=== PATIENT | female | born 1945 | race Hispanic/Latino ===

== ENCOUNTER 2024-06-08 07:30 | Day surgery (SDC) | payer MEDICARE ==
[2024-06-06 08:50] LABS: BASOPHILS # (AUTO) 0.07 K/uL (0.00-0.20); BASOPHILS % (AUTO) 0.9 % (0.0-5.0); EOSINOPHILS # (AUTO) 0.38 K/uL (0.00-0.70); EOSINOPHILS % (AUTO) 4.7 % (0.0-8.0); HEMATOCRIT 35.2 % (36-48); IMMATURE GRANULOCYTE ABSOLUTE 0.02 K/uL (0-1); LYMPHOCYTES # (AUTO) 2.8 K/uL (1.0-4.8); LYMPHOCYTES % (AUTO) 34.6 % (21.0-51.0); MEAN CORPUSCULAR HEMOGLOBIN 30.3 pg (27.0-33.0); MEAN CORPUSCULAR HGB CONC 31.5 g/dL (32.0-36.0); MEAN CORPUSCULAR VOLUME 96.2 fL (79-99); MONOCYTES # (AUTO) 0.5 K/uL (0.1-1.0); MONOCYTES % (AUTO) 6.2 % (3.0-13.0); NEUTROPHILS # (AUTO) 4.3 K/uL (1.8-7.7); NEUTROPHILS % (AUTO) 53.4 % (40.0-77.0); PLATELET COUNT (AUTO) 268 K/uL (130-400); RED BLOOD CELL COUNT(AUTO) 3.66 MIL/uL (4.00-5.50); WHITE BLOOD COUNT (AUTO) 8.1 K/uL (4.8-10.8)
[2024-06-06 08:58] LABS: CREATININE 1.3 mg/dL (0.5-1.0); POTASSIUM 4.2 mmol/L (3.5-5.1)
[2024-06-06 09:02] LABS: INR 1.08 (0.85-1.15); PROTHROMBIN TIME 11.6 SEC (9.6-11.6)
[2024-06-06 09:03] LABS: PARTIAL THROMBOPLASTIN TIME 27.3 SEC (26.3-35.5)
[2024-06-06 09:04] VITALS: BP 126/82; PULSE 62; RESP 16; TEMP 97.9
[2024-06-06 09:31] LABS: APPEARANCE,URINE CLEAR (CLEAR); BILIRUBIN,URINE NEGATIVE (NEGATIVE); COLOR,URINE LIGHT-YELLOW (YELLOW); GLUCOSE, URINE (UA) NEGATIVE (NEGATIVE); KETONES,URINE NEGATIVE (NEGATIVE); LEUKOCYTE ESTERASE ,URINE 250 Leu/uL (NEGATIVE); NITRATE,URINE NEGATIVE (NEGATIVE); OCCULT BLOOD,URINE NEGATIVE (NEGATIVE); PROTEIN,URINE NEGATIVE (NEGATIVE); UROBILINOGEN,URINE 0.2 mg/dL (0.2-1.0)
[2024-06-06 09:36] LABS: ADD UA MICROSCOPIC YES
[2024-06-06 09:38] LABS: RBC,URINE 0-1 /HPF (0-1); SQUAMOUS EPITHELIAL CELL,UR RARE /HPF (0-2)
[2024-06-06 09:51] LABS: B-TYPE NATRIURETIC PEPTIDE 88 pg/mL (0-100)
--- NOTE | 2024-06-06 10:32 | HMCIMG ---
CHEST 1VW HISTORY: Preop COMPARISON: None FINDINGS: A frontal projection of the chest was obtained. No acute pulmonary infiltrates is seen. The heart is normal in size. Degenerative changes are seen. Prominent interstitial markings are seen. Aortic calcifications are seen. IMPRESSION: 1. No acute pulmonary infiltrate is seen.
--- NOTE | 2024-06-06 10:33 | EKG ---
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
--- NOTE | 2024-06-07 15:41 | NUR ---
report reported bun/creat/urine cx preliminary/ urine leuk/uwbc to dr raven campos. ok to proceed
[2024-06-08] VITALS (11 sets, daily range): BP systolic 127–204; BP diastolic 52–81; PULSE 56–68; RESP 16–18; TEMP 97.7–97.9
[~2024-06-08] VITALS: Ht 139.7 cm; Wt 61.9 kg
[~2024-06-08 07:30] MED LIST: AEC81 PO; ATOR40TA69 PO; HYDR12.54 PO; INSU3INS3 SQ; LINA5TAB PO; LOSA100T59 PO; METF-444 PO; METO100T14 PO
[2024-06-08] MEDS: 0.9%NACL 1000ML 1,000 ML IV ONE (09:27)
--- NOTE | 2024-06-08 12:49 | NUR ---
SPOKE WITH PT ABOUT DR. GRANT DOING CASE AROUND 1530 PT WAS OK WITH WAITING. I DID GIVE PT 2 CRACKERS AND A LITTLE ORANGE JUICE.
[2024-06-08] MEDS ORDERED: FENTanyl CITRate PF 50 MCG/1 ML 2ML VIAL ONE (16:48)
[2024-06-08] MEDS ORDERED: MIDAZOLAM HCL 1 MG/ML 2ML VIAL ONE ×2 (16:48→17:12)
[2024-06-08] MEDS ORDERED: LIDOCAINE HCL 400MG/20ML VIAL ONE (16:48)
[2024-06-08] MEDS ORDERED: VERAPAMIL HCL 2.5 MG/ML VIAL ONE (16:49)
[2024-06-08] MEDS ORDERED: IOHEXOL 350 MG/ML 100ML INFUS..BTL IV ONE (16:49)
[2024-06-08] MEDS ORDERED: HEParin 10,000 UNIT/10ML (1,000 UNIT/ML) VIAL ONE (16:49)
[2024-06-08] MEDS ORDERED: NITROGLYCERIN 50MG VIAL ONE (16:49)
[2024-06-08] MEDS ORDERED: HEParin-NS 1,000 UNIT/500 ML 1,000 ML IV ONE (16:49)
[2024-06-08] MEDS ORDERED: hydrALAZine 20MG/ML VIAL ONE (17:46)
[2024-06-08] MEDS ORDERED: NITROGLYCERIN 4.1 GM SPRAY TL ONE (17:51)
--- NOTE | 2024-06-08 17:52 | PRN ---
PROCEDURE REPORT DATE OF PROCEDURE: Jun 08, 2024 DRUG SAFETY ASSISTANT: [ Zane Fang MD] PROCEDURE PERFORMED: Conscious sedation Ultrasound guided right radial artery access Selective left coronary artery angiogram Selective right coronary artery angiogram Left heart catheterization TR band 13 pratibha over right radial artery INDICATION: Abnormal CCTA DESCRIPTION OF PROCEDURE: After informed consent was obtained, the patient was prepped and draped in the usual sterile fashion. A 6 Ecuadorean arterial sheath was inserted in the right radial artery using ultrasound guidance with first pass wall puncture. The arterial sheath was aspirated and flushed. A 6 Ecuadorean JL 3.5 was then advanced to the ascending aorta over an exchange length J-tip guidewire, was aspirated and flushed, and was used for selective coronary angiograms in multiple obliquities. A JR-4 was advanced in a similar fashion to the ascending aorta over the J-tipped guidewire and was used for selective right coronary angiograms in multiple oblique views with findings as outlined below. The JR-4 catheter advanced into the LV and pressures were obtained with a pull-back across the aortic valve. A TR band was placed over right radial artery. FLUOROSCOPY TIME: 5 min LEFT HEART HEMODYNAMICS: LVEDP 5 mm Hg and no gradient Ao CORONARY ANGIOGRAM: LEFT MAIN: Patent and 0% stenosis. Gives rise to LCx and LAD. LEFT ANTERIOR DESCENDING: Large vessel giving rise to two Diagonal branches. Calcified with 80% proximal stenosis with LOBO 3 flow. The diagonals are patent with luminal irregularities LEFT CIRCUMFLEX: Large and gives rise to two OM branches. 50% ostial stenosis followed by 30% proximal stenosis. The OM are patent with mild diffuse disease RIGHT CORONARY ARTERY: Large, dominant vessel giving rise to PDA and PL branches. Heavily calcified with 50% proximal becoming 80% in the mid segment. PDA and PLB are widely patent HEMOSTASIS: TR band 12 pratibha over right radial artery INTERVENTIONS: None. COMPLICATIONS: None FINDINGS: Normal coronary anatomy and severe 2vCAD. ESTIMATED BLOOD LOSS: 5 cc RECOMMENDATIONS/INSTRUCTIONS: Aggressive risk factor modification and consult CV surgery for CABG eval vs high risk PCI Follow up in clinic 1-2 weeks post DC. CONTRAST DELIVERED TO PATIENT (mL): 45cc MD RUDY Estrella JAMES R MD Jun 08, 2024 17:52
[2024-06-08] MEDS ORDERED: GLUCAGON 1MG KIT 1 MG ML IM PRN (18:00)
[2024-06-08] MEDS ORDERED: 0.9%NACL 1000ML 1,000 ML IV SCH (18:00)
[2024-06-08] MEDS ORDERED: DEXTROSE 50%-WATER 50 ML DISP.SYRIN IV PRN (18:00)
== END 2024-06-08 20:38 | disposition home or self-care (01) ==
LOC: DAH 07:30
PROVIDERS: ATTEND Student in an Organized Health Care Education/Training Program
DX: R93.1 Abnormal findings on diagnostic imaging of heart and coronary circulation (principal); I25.118 Atherosclerotic heart disease of native coronary artery with other forms of angina pectoris; R07.9 Chest pain, unspecified; I11.9 Hypertensive heart disease without heart failure; E78.5 Hyperlipidemia, unspecified; K21.9 Gastro-esophageal reflux disease without esophagitis; Z79.4 Long term (current) use of insulin; Z79.82 Long term (current) use of aspirin; Z79.899 Other long term (current) drug therapy
CPT/HCPCS: 80048; 83880; 85025; 85610; 85730; 87086; 81001; 36415; 71045; 93005; 93458; 82948 ×2; C1769 ×2; C1894; A4649; J3010; J3490 ×3; J7030; J0360; J1644 ×2; J2250 ×2; Q9967; A4215; A4222; A4221; A4663; A4216; A4606; Q9965; A4223 ×3; 99156; 99157

== ENCOUNTER 2024-12-16 10:44 | Inpatient (IN) | payer MEDICARE, MEDICAID ==
[~2024-12-16] VITALS: Ht 144.8 cm; Wt 65.0 kg
[~2024-12-16 10:44] MED LIST changes: +ACET-2893 PO; +APIX2.5T PO; +ATROPINE 1MG SYG IVP ONE; +CACL 1GM SYG IVP ONE; +DICY-20 PO; -HYDR12.54 PO; -INSU3INS3 SQ; -LOSA100T59 PO; -METF-444 PO; -METO100T14 PO; +METO50TA9 PO; +PANT40TA55 PO; +POTA-202 PO
[2024-12-16 11:35] LABS: BASOPHILS # (AUTO) 0.03 K/uL (0.00-0.20); BASOPHILS % (AUTO) 0.2 % (0.0-5.0); HEMATOCRIT 39.9 % (36-48); IMMATURE GRANULOCYTE ABSOLUTE 0.25 K/uL (0-1); LYMPHOCYTES # (AUTO) 1.6 K/uL (1.0-4.8); LYMPHOCYTES % (AUTO) 12.1 % (21.0-51.0); MEAN CORPUSCULAR HEMOGLOBIN 28.1 pg (27.0-33.0); MEAN CORPUSCULAR HGB CONC 27.6 g/dL (32.0-36.0); MEAN CORPUSCULAR VOLUME 101.8 fL (79-99); MONOCYTES # (AUTO) 0.9 K/uL (0.1-1.0); MONOCYTES % (AUTO) 7.2 % (3.0-13.0); NEUTROPHILS # (AUTO) 10.2 K/uL (1.8-7.7); NEUTROPHILS % (AUTO) 78.6 % (40.0-77.0); NUCLEATED RED BLOOD CELLS 0.9 % (0.0-0.19); PLATELET COUNT (AUTO) 240 K/uL (130-400); RED BLOOD CELL COUNT(AUTO) 3.92 MIL/uL (4.00-5.50); RED CELL DISTRIBUTION WIDTH 19.3 % (11.0-15.5); WHITE BLOOD COUNT (AUTO) 12.9 K/uL (4.8-10.8)
--- NOTE | 2024-12-16 11:40 | NUR ---
BG 101
[2024-12-16 11:55] LABS: ALBUMIN 2.9 g/dL (3.5-5.0); BILIRUBIN,DIRECT 0.9 mg/dL (0.0-0.3); BILIRUBIN,TOTAL 1.3 mg/dL (0.2-1.0); CREATININE 2.6 mg/dL (0.5-1.0); POTASSIUM 4.7 mmol/L (3.5-5.1); TOTAL PROTEIN, SERUM 6.2 g/dL (6.0-8.3)
[2024-12-16] MEDS: 0.9%NACL 1000ML 1,000 ML IV ONE (13:00)
--- NOTE | 2024-12-16 13:18 | EKG ---
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 : 1945 Requested By: IVY ANDRADE Order Number: [id number] Reading MD: Hamilton Morrell Measurements Intervals [place] Rate: 113 P: 0 [place]: 0 QRS: 15 QRSD: 106 T: 4 QT: 387 QTc: 532 Interpretive Statements Atrial fibrillation Ventricular premature complex Low voltage, extremity leads Prolonged QT interval Compared to ECG 11/07/2024 14:41:58 Ventricular premature complex(es) now present Left ventricular hypertrophy no longer present Early repolarization no longer present Electronically Signed On 12-19-2024 22:12:48 CDT by Hamilton Morrell Please click the below link to view image of tracing.
--- NOTE | 2024-12-16 13:19 | HMCIMG ---
CT ABDOMEN/PELVIS W/O CONTRAST HISTORY: Abnormal pain COMPARISON: None TECHNIQUE: Multiple sequential axial images of the abdomen and pelvis were obtained from the dome of the diaphragm through symphysis pubis. Patient was November 07, 2024 through intravenous route. Oral contrast was not given. FINDINGS: Small bilateral pleural effusions are seen. Bilateral pulmonary infiltrates are seen. Degenerative changes of the thoracolumbar spine are present. The heart is not enlarged. Liver measured 12.4 cm. Gastric distention seen with air-fluid level. Postcholecystectomy changes are seen. Mild small bowel dilatation seen with fluid-filled may be related to enterocolitis. Uterus is enlarged suggests a fibroid uterus. There is right renal cyst measuring 4 cm. The liver, spleen, adrenal glands and pancreas are unremarkable. There is no evidence of hydronephrosis bilaterally. No evidence of renal stone is seen. Fecal material is seen in the colon. There are normal size retroperitoneal and mesenteric lymph nodes. No ascites is seen. Atherosclerotic changes are present. Pelvic sidewalls are symmetric bilaterally. Bladder is poorly distended. IMPRESSION: 1. Gastric distention. No small bowel dilatation. There may be related to enterocolitis. 2. Enlarged uterus suggesting fibroid uterus. CT was performed with one or more following dose reduction techniques: automated exposure control, adjustment of the mA and kv according to patient's size, or use of a iterative reconstruction technique.
[2024-12-16] MEDS ORDERED: MAGNESIUM 2GM PREMIX 50ML 50 ML IV PRN (14:30)
[2024-12-16] MEDS ORDERED: GLUCAGON 1MG KIT 1 MG ML IM PRN (14:30)
[2024-12-16] MEDS: morPHINE 2 MG SYG IVP ONE (14:32)
[2024-12-16] MEDS ORDERED: traMADol HCL 50 MG TABLET PO PRN (15:00)
[2024-12-16] MEDS ORDERED: ondanSETRON 4MG INJ IV PRN (15:00)
[2024-12-16] MEDS ORDERED: NITROGLYCERIN 0.4 MG SL TAB SL PRN (15:00)
[2024-12-16] MEDS ORDERED: acetaMINOPHEN 325 MG TAB PO PRN ×3 (15:00)
[2024-12-16] MEDS ORDERED: ZOLPidem TARTrate 5 MG TAB PO PRN (15:00)
[2024-12-16] MEDS ORDERED: cefTRIAXone 1G VIAL 2 GM in 0.9%NACL 100ML 100 ML IV SCH (15:00)
[2024-12-16] MEDS ORDERED: LACTULOSE 20 GM/30 ML UDCUP PO PRN (15:00)
[2024-12-16] MEDS ORDERED: FAMOTIDINE 20MG VIAL IV PRN (15:00)
[2024-12-16] MEDS ORDERED: MAG/ALUM/SIMETH 30 ML UDCUP PO PRN (15:00)
[2024-12-16] MEDS ORDERED: guaiFENesin-DM 200/20MG 10ML PO PRN (15:00)
[2024-12-16] MEDS ORDERED: hydrALAZine 20MG/ML VIAL IV PRN (15:00)
[2024-12-16] MEDS ORDERED: DiphenhydrAMINE HCL 50 MG/ML VIAL IV PRN (15:00)
--- NOTE | 2024-12-16 15:06 | HP ---
[facility] HISTORY AND PHYSICAL Date of Service: December 16, 2024 Time of Service: 14:48 PCP:Dr Eleuterio Vines Admitting: Dr Helms, Allergies: No Allergy Information Available, No Known Drug Allergies HISTORY OF PRESENT ILLNESS: [Patient is 79 years old female with a past medical history of type 2 diabetes mellitus, hypertension, hyperlipidemia, Coronary Artery Disease with history of CABG, osteoarthritis, GERD, who was brought to emergency department for evaluation of epigastric pain. Patient stated that in October 2024 she had laparoscopic cholecystectomy performed at [facility]. Patient stated that surgery went well however she continued to have some epigastric pain associated with the nausea and vomiting. She visited emergency department [facility] multiple times since the surgery the last one was 11/07/2024. Today patient came with the same complaint of severe abdominal pain, nausea and vomiting since yesterday evening. As per EMS patient was hypoglycemic and had to receive glucagon. On admission patient's kidneys also has been evaluated compared to the previous admission. Most recent vital signs pulse 98 respiration 18 blood pressure 164/88 patient is on 2 L nasal cannula satting 100%. WBC 12.9 hemoglobin 11 hematocrit 39.9 platelets 240. Sodium 147 potassium 4.7 CO2 seven BUN 35 creatinine 2.6 GFR 18 bilirubin 1.3 AST 2.3 ALT 57 troponin 54 repeated 164 albumin 2.[address] abdomen/pelvis showed gastric distention no bowel dilation. Possible enterocolitis. Enlarged uterus suggesting fibroids uterus. Chest x-ray pending. Patient will be admitted under hospitalist care for further evaluation/recommendation. A.m. labs.] REVIEW OF SYSTEMS CONSTITUTIONAL: Denies fevers, chills, or night sweats. No unintentional weight loss reported. NEUROLOGICAL: Denies headache, amaurosis fugax, motor weakness, sensory deficit, vertigo/spinning sensation, gait abnormalities, or tremors. ENT: No hearing loss, otalgia, otorrhea, rhinitis, rhinorrhea, hoarseness, or sore throat. CARDIOVASCULAR: Denies any exertional angina, dyspnea on exertion, orthopnea, paroxysmal nocturnal dyspnea, palpitations, life-threatening arrhythmias, cla udication. PULMONARY: Denies any shortness of breath, cough, phlegm/sputum, hemoptysis, pleuritic chest pain. SLEEP: Denies morning headaches, daytime somnolence or napping. Denies difficulty falling asleep, staying asleep, waking from sleep. Denies knowledge of snoring. GASTROINTESTINAL: Denies any type of dysphagia to either liquids or solids. Denies , pyrosis, early satiety, , diarrhea, constipation, or changes in stool consistency or caliber. Denies coffee-ground emesis, hematemesis, hematochezia, or melanotic stools. Complains of abdominal pain nausea and vomiting GENITOURINARY: Denies frequency, urgency, nocturia, hematuria or incontinence (Storage/Irritative symptoms.) Low urinary stream, straining to void, urinary intermittency or hesitancy, splitting of the voiding stream, terminal dribbling. ENDOCRINOLOGIC: Denies polyuria, polydipsia, polyphagia or heat/cold intolerances. HEMATOLOGIC: Denies thrombophilia/previous clots, or coagulopathy/bleeding disorders. ONCOLOGIC: Denies personal history of malignancy. DERMATOLOGIC: Denies rashes or pruritus. PSYCHIATRIC: Denies any suicidal or homicidal ideation. Denies hallucinations. PAST MEDICAL HISTORY: [ AFib, diabetes, hypertension, hyperlipidemia, Coronary Artery Disease, osteoarthritis, GERD ] PAST SURGICAL HISTORY: [ CABG, cholecystectomy] PAST SOCIAL HISTORY: [Patient denies any tobacco or alcohol nor substance abuse ] FAMILY HISTORY: [ Noncontributory] Coded Allergies: No Known Drug Allergies (Unverified Allergy, Unknown, 06/06/24) PHYSICAL EXAM GENERAL APPEARANCE: The patient is awake, alert, and oriented, in no acute cardiopulmonary distress. NEUROLOGICAL: Cranial nerves II-XII grossly intact. Motor is 5/5 in bilateral upper and lower extremities proximal to distal. No sensory deficits. HEENT: Face is symmetric. Pupils are equal and reactive. Extraocular movements are intact. NECK: Supple. No JVD. No thyromegaly. No submental, submandibular, pre- /postauricular, occipital or supraclavicular lymphadenopathy. CHEST: Normal chest expansion. No Telemetry. LUNGS: Absence of any rales, rhonchi or any wheezing. CARDIOVASCULAR: Regular. S1 and S2 normal. No appreciable rubs, murmurs or gallops. ABDOMEN: Soft, nontender, and nondistended. There is no rebound, voluntary guarding, or rigidity. : Deferred. No Isbell. EXTREMITIES: Non-edematous and not cyanotic. No clubbing. Good capillary ref ill. SKIN: No skin breakdown. Vital Sign (Last 24 Hours) 12/16/24 10:47 Pulse 98 Resp 18 B/P (MAP) 164/88 Pulse Ox 100 O2 Delivery Nasal Cannula O2 Flow Rate 2.0 LABS: Laboratory: Test 12/16/24 12:31 12/16/24 11:38 12/16/24 11:16 Range/Units Troponin I High Sensitivity 64 *H 4-50 ng/L Whole Blood Glucose 101 70-110 MG/DL White Blood Count 12.9 H 4.8-10.8 K/uL Red Blood Count 3.92 L 4.00-5.50 MIL/uL Hemoglobin 11.0 L 12.0-16.0 g/dL Hematocrit 39.9 36-48 % Mean Corpuscular Volume 101.8 H 79-99 fL Mean Corpuscular Hemoglobin 28.1 27.0-33.0 pg Mean Corpuscular Hemoglobin Concent 27.6 L 32.0-36.0 g/dL Red Cell Distribution Width 19.3 H 11.0-15.5 % Platelet Count 240 130-400 K/uL Mean Platelet Volume 11.4 H 7.5-10.5 fL Immature Granulocyte % (Auto) 1.9 H 0-1 % Neutrophils (%) (Auto) 78.6 H 40.0-77.0 % Lymphocytes (%) (Auto) 12.1 L 21.0-51.0 % Monocytes (%) (Auto) 7.2 3.0-13.0 % Eosinophils (%) (Auto) 0.0 0.0-8.0 % Basophils (%) (Auto) 0.2 0.0-5.0 % Neutrophils # (Auto) 10.2 H 1.8-7.7 K/uL Lymphocytes # (Auto) 1.6 1.0-4.8 K/uL Monocytes # (Auto) 0.9 0.1-1.0 K/uL Eosinophils # (Auto) 0.00 0.00-0.70 K/uL Basophils # (Auto) 0.03 0.00-0.20 K/uL Absolute Immature Granulocyte (auto 0.25 0-1 K/uL Nucleated Red Blood Cells 0.9 H 0.0-0.19 % Red Blood Cell Morphology See comments Sodium Level 147 H 136-145 mmol/L Potassium Level 4.7 3.5-5.1 mmol/L Chloride Level 106 101-111 mmol/L Carbon Dioxide Level 7 *L 21-32 mmol/L Blood Urea Nitrogen 35 H 7-18 mg/dL Creatinine 2.6 H 0.5-1.0 mg/dL Glomerular Filtration Rate Calc 18 >90 mL/min Random Glucose 107 H 70-105 mg/dL Total Calcium 9.6 8.5-10.1 mg/dL Total Bilirubin 1.3 H 0.2-1.0 mg/dL Direct Bilirubin 0.9 H 0.0-0.3 mg/dL Aspartate Amino Transf (AST/SGOT) 203 H 10-37 U/L Alanine Aminotransferase (ALT/SGPT) 57 12-78 U/L Alkaline Phosphatase 220 H 50-136 U/L Total Protein 6.2 6.0-8.3 g/dL Albumin 2.9 L 3.5-5.0 g/dL Lipase 34 16-77 U/L Current Medications Medications (Trade) Dose Ordered Sig/Jesus Route PRN Reason Start Time Stop Time Status Last Admin Dose Admin Dextrose (D50w) 50 ml AD PRN IV HYPOGLYCEMIA PROTOCOL 12/16/24 14:30 01/15/25 14:29 Glucagon (Glucagon 1mg Kit) 1 mg AD PRN IM HYPOGLYCEMIA PROTOCOL 12/16/24 14:30 01/15/25 14:29 Insulin Human Regular (humuLIN R 100 UNIT/ML 3ML) INSULIN SLIDING SCAL... ACHS SQ 12/16/24 16:30 01/15/25 16:29 Magnesium Sulfate 50 ml @ 0 mls/hr PROTOCOL PRN IV other 12/16/24 14:30 01/15/25 14:29 DIAGNOSTICS / RADIOLOGY: [ ] ASSESSMENT: [ Acute kidney injury POA Severe hypoglycemia POA Enterocolitis per CT abdomen/pelvis POA Fibroid uterus per CT abdomen/pelvis POA Severe abdominal pain POA Acute dehydration due to above POA Uncontrolled diabetes mellitus type 2 with hypoglycemia POA Uncontrolled hypertension POA Leukocytosis WBC 12.9 Electrolyte imbalance hyponatremia Na 147 AFib controlled POA Hypertroponinemia POA Severe malnutrition POA Multifactorial anemia POA Acute diastolic congestive heart failure EF 50 to 55% per 2D echo 11/07/2024 Hyperlipidemia POA Coronary Artery Disease s/p CABG 07/12 GERD POA Osteoarthritis POA History of cholecystectomy October 2024 ] PLAN: [ Admit to: Medical-surgical floor with telemetry Consults: GI Antibiotics: Rocephin Tests: Chest x-ray NEURO: Minimize central acting medications as possible. Fall Precautions. Well lighted room through the day and minimize interruptions through the night to prevent acute delirium. PULMONARY: Chest x-ray pending Supplemental 02 as needed BiPAP as necessary, for respiratory distress Titrate Fio2 to keep Spo2 > or = 90% DuoNebs and CPT as needed IS hourly while awake for pulmonary hygiene Out of bed to chair as tolerated VAP Bundle Maintain aspiration precautions at all times CARDIOVASCULAR: Follow hemodynamics. Vital signs per facility protocol GI & NUTRITION: CT abdomen/pelvis showed enterocolitis, fibroid uterus Continue nutritional support Aspirations precautions Prokinetic agents and laxatives as needed KIDNEYS & ELECTROLYTES: Strict monitoring of intake and output Daily weights Avoid nephrotoxic agents Monitor electrolytes and replace as needed Goal urine output of 30mL/hr or 0.5mL/kg/hr Medications to be dosed according to renal function. Avoid contrast if possible ENDOCRINE: Maintain blood glucose between 100-180 at all times. Insulin sliding scale for blood glucose management Hypoglycemia and hyperglycemia protocol in place INFECTIOUS DISEASE: Trend temperature, WBC and procalcitonin level Follow cultures, deescalate antibiotics as soon as possible. Panculture if new onset fever HEMATOLOGY & COAGULATION: Monitor H&H. Keep Hgb > 7 Transfuse 1 unit of PRBC for Hgb < 7 Transfuse 1 pack of platelets of platelets < 20, 000 Watch for any signs and symptoms of bleeding SKIN: Pressure ulcer prevention per facility protocol Specialty mattress as needed Treatment plan discussed with patient and family at the bedside Medications to be reconciled once obtained by patient and/or family and available to be reconciled in computer p.r.n. medication for pain nausea and vomiting Questions were answered We will continue to monitor the patient closely Commercial Truck Driver for disposition Rehab: PT/OT GI: PPI DVT: SCD's Code Status: Full Resuscitation Disposition: TBD Prognosis: Guarded ] ADVANCED CARE PLANNING 1. Which of the following were discussed? Hospice Care - Yes / No Therapeutic options - Yes / No Advance Directives - Yes / No Other discussions - 2. Discussed with who? Patient 3. Voluntary nature of this service was explained to the patient? Yes / No 4. Amount of time spent - __ more than 35 minutes 5. Reviewed by Physician? (if this service was performed by NPP) Yes / No ATTESTATION BY PHYSICIAN I have seen and examined the patient. I reviewed the documentation, medical decision making, and treatment plan as noted by the mid-level provider above. I agree with the findings and plan of care. SASHA Cornell MD PISTON MAKER December 16, 2024 15:06
[2024-12-16 15:45] LABS: BILIRUBIN,URINE SMALL mg/dL (NEGATIVE); COLOR,URINE YELLOW (YELLOW); GLUCOSE, URINE (UA) NEGATIVE (NEGATIVE); KETONES,URINE NEGATIVE (NEGATIVE); LEUKOCYTE ESTERASE ,URINE NEGATIVE Leu/uL (NEGATIVE); NITRATE,URINE NEGATIVE (NEGATIVE); OCCULT BLOOD,URINE LARGE (NEGATIVE); PROTEIN,URINE >=300 mg/dL (NEGATIVE); UROBILINOGEN,URINE 0.2 mg/dL (0.2-1.0)
[2024-12-16 15:48] LABS: APPEARANCE,URINE CLOUDY (CLEAR)
[2024-12-16 15:52] LABS: BACTERIA,URINE Few /HPF (None Seen); SQUAMOUS EPITHELIAL CELL,UR None Seen /HPF (0-2); WBC,URINE 0-1 /HPF (0-1)
--- NOTE | 2024-12-16 16:00 | CONS ---
GASTROENTEROLOGY CONSULTATION NOTE Date of Consultation: December 16, 2024 Time of Consultation: 16:00 History of Present Illness: This is an 79 year old female with a past medical history of type 2 diabetes mellitus, hypertension, hyperlipidemia, Coronary Artery Disease with history of CABG, osteoarthritis, GERD, who was brought to emergency department for evaluation of epigastric pain. Patient stated that in October 2024 she had laparoscopic cholecystectomy performed at [facility]. Patient stated that surgery went well however she continued to have some epigastric pain associated with the nausea and vomiting. She visited emergency department [facility] multiple times since the surgery the last one was 11/07/2024. Today patient came with the same complaint of severe abdominal pain, nausea and vomiting since yesterday evening. As per EMS patient was hypoglycemic and had to receive glucagon. Sodium and troponin elevated. LFTs elevated. CT revealing gastric distention concerning for enterocolitis. Review of Systems: CONSTITUTIONAL: No malaise or change in sensation of wellbeing. ENMT: No rhinorrhea, otorrhea, sinus pain, ear ache. CARDIOVASCULAR: No angina, palpitations, orthopnea or paroxysmal dyspnea. RESPIRATORY: No SOB. GASTROINTESTINAL: No abdominal pain, nausea, vomiting, diarrhea, hematemesis, melena or change in the patient's habitual bowel movements consistency/number. GENITOURINARY: No dysuria, hematuria or change in bladder continence. MUSCULOSKELETAL: No new muscle pain or decrease in muscular strength. No new joint swelling, redness or tenderness. SKIN: No new rash. Past Medical History: [ ] Past Surgical History: [ ] Past Social History: [ ] Family History: [ ] Coded Allergies: No Known Drug Allergies (Unverified Allergy, Unknown, 06/06/24) Physical Exam: GEN: Awake, alert, oriented in person, time and place, and in no acute distress. HEENT: No sinus tenderness. Tympanic membranes were not examined. No rhinorrhea. Oral pharyngeal mucosa is pink, moist and within normal limits. Neck is supple with no cervical lymphadenopathy, thyromegaly or JVD. CHEST: Inspection, palpation and percussion of the chest were unremarkable. Lung auscultation revealed normal breath sounds bilaterally. CARDIAC: PMI is within normal limits. Heart sounds are regular. Normal S1, S2. No gallop or murmur. ABD: Soft, non-tender and not distended. No peritoneal signs on palpation. No organomegaly. Normal bowel sounds. EXT: No cyanosis or clubbing. No edema. SKIN: Intact. No rashes. JOINTS: No evidence of synovitis or acute arthritis. NEURO: Alert and oriented to name, place and person. Cranial nerve examination is unremarkable. No focal motor deficits. Normal speech. Gait is normal. Strength is normal. Vital Sign (Last 24 Hours) 12/16/24 10:47 Pulse 98 Resp 18 B/P (MAP) 164/88 Pulse Ox 100 O2 Delivery Nasal Cannula O2 Flow Rate 2.0 Laboratory: [ ] Laboratory: Test 12/16/24 15:23 12/16/24 12:31 12/16/24 11:38 12/16/24 11:16 Range/Units Urine Color YELLOW YELLOW Urine Appearance CLOUDY H CLEAR Urine pH 6.0 5.0-8.0 Urine Specific [place] 1.020 1.001-1.031 Urine Protein >=300 H NEGATIVE mg/dL Urine Glucose (UA) NEGATIVE NEGATIVE mg/dL Urine Ketones NEGATIVE NEGATIVE mg/dL Urine Occult Blood LARGE H NEGATIVE Urine Nitrate NEGATIVE NEGATIVE Urine Bilirubin SMALL H NEGATIVE mg/dL Urine Urobilinogen 0.2 0.2-1.0 mg/dL Urine Leukocyte Esterase NEGATIVE NEGATIVE Justin/uL Urine RBC 11-25 H 0-1 /HPF Urine WBC 0-1 0-1 /HPF Urine Squamous Epithelial Cells None Seen 0-2 /HPF Urine Amorphous Crystals (Auto) Many H None Seen /LPF Urine Bacteria Few None Seen /HPF Troponin I High Sensitivity 64 *H 4-50 ng/L Serum Alcohol < 3 0-10 mg/dL Whole Blood Glucose 101 70-110 MG/DL White Blood Count 12.9 H 4.8-10.8 K/uL Red Blood Count 3.92 L 4.00-5.50 MIL/uL Hemoglobin 11.0 L 12.0-16.0 g/dL Hematocrit 39.9 36-48 % Mean Corpuscular Volume 101.8 H 79-99 fL Mean Corpuscular Hemoglobin 28.1 27.0-33.0 pg Mean Corpuscular Hemoglobin Concent 27.6 L 32.0-36.0 g/dL Red Cell Distribution Width 19.3 H 11.0-15.5 % Platelet Count 240 130-400 K/uL Mean Platelet Volume 11.4 H 7.5-10.5 fL Immature Granulocyte % (Auto) 1.9 H 0-1 % Neutrophils (%) (Auto) 78.6 H 40.0-77.0 % Lymphocytes (%) (Auto) 12.1 L 21.0-51.0 % Monocytes (%) (Auto) 7.2 3.0-13.0 % Eosinophils (%) (Auto) 0.0 0.0-8.0 % Basophils (%) (Auto) 0.2 0.0-5.0 % Neutrophils # (Auto) 10.2 H 1.8-7.7 K/uL Lymphocytes # (Auto) 1.6 1.0-4.8 K/uL Monocytes # (Auto) 0.9 0.1-1.0 K/uL Eosinophils # (Auto) 0.00 0.00-0.70 K/uL Basophils # (Auto) 0.03 0.00-0.20 K/uL Absolute Immature Granulocyte (auto 0.25 0-1 K/uL Nucleated Red Blood Cells 0.9 H 0.0-0.19 % Red Blood Cell Morphology See comments Sodium Level 147 H 136-145 mmol/L Potassium Level 4.7 3.5-5.1 mmol/L Chloride Level 106 101-111 mmol/L Carbon Dioxide Level 7 *L 21-32 mmol/L Blood Urea Nitrogen 35 H 7-18 mg/dL Creatinine 2.6 H 0.5-1.0 mg/dL Glomerular Filtration Rate Calc 18 >90 mL/min Random Glucose 107 H 70-105 mg/dL Total Calcium 9.6 8.5-10.1 mg/dL Total Bilirubin 1.3 H 0.2-1.0 mg/dL Direct Bilirubin 0.9 H 0.0-0.3 mg/dL Aspartate Amino Transf (AST/SGOT) 203 H 10-37 U/L Alanine Aminotransferase (ALT/SGPT) 57 12-78 U/L Alkaline Phosphatase 220 H 50-136 U/L Total Protein 6.2 6.0-8.3 g/dL Albumin 2.9 L 3.5-5.0 g/dL Lipase 34 16-77 U/L Current Medications Medications (Trade) Dose Ordered Sig/Jesus Route PRN Reason Start Time Stop Time Status Last Admin Dose Admin Acetaminophen (TYLenol 325MG TAB) 650 mg Q4H PRN PO MILD PAIN (1-3) 12/16/24 15:00 01/15/25 14:59 Acetaminophen (TYLenol 325MG TAB) 650 mg Q6H PRN PO MILD PAIN (1-3) 12/16/24 15:00 12/16/24 14:49 DC Acetaminophen (TYLenol 325MG TAB) 650 mg Q6H PRN PO TEMPERATURE GREATER THAN 101.5 12/16/24 15:00 01/15/25 14:59 Al Hydroxide/Mg Hydroxide (MAALox PLUS 30ML) 30 ml Q6H PRN PO INDIGESTION 12/16/24 15:00 01/15/25 14:59 Ceftriaxone Sodium 2 gm/ Sodium Chloride 100 ml @ 200 mls/hr Q24H IV 12/16/24 15:00 12/16/24 14:49 DC Ceftriaxone Sodium (Rocephin 2gm Inj) 2 gm Q24H IVPB 12/16/24 15:00 12/26/24 14:59 Dextrose (D50w) 50 ml AD PRN IV HYPOGLYCEMIA PROTOCOL 12/16/24 14:30 01/15/25 14:29 Diphenhydramine HCl (BENAdryl INJ) 25 mg Q6H PRN IV SEVERE ITCHING/RASH 12/16/24 15:00 01/15/25 14:59 Famotidine (Pepcid 20mg Vial) 20 mg BID PRN IV NAUSEA/VOMITING 12/16/24 15:00 12/16/24 14:49 DC Famotidine (Pepcid 20mg Vial) 20 mg Q48H IV 12/16/24 21:00 01/15/25 20:59 Glucagon (Glucagon 1mg Kit) 1 mg AD PRN IM HYPOGLYCEMIA PROTOCOL 12/16/24 14:30 01/15/25 14:29 Guaifenesin/ Dextromethorphan (RobiTUSSin DM 200/20MG 10ML) 10 ml Q4H PRN PO COUGH 12/16/24 15:00 01/15/25 14:59 Heparin Sodium (Porcine) (HEParin 5,000 UNIT VIAL) 5,000 unit BID SQ 12/16/24 21:00 01/15/25 20:59 Hydralazine HCl (APRESOLine 20MG INJ) 10 mg Q6H PRN IV For:SBP above 160;DBP above 90 12/16/24 15:00 01/15/25 14:59 Insulin Human Regular (humuLIN R 100 UNIT/ML 3ML) INSULIN SLIDING SCAL... ACHS SQ 12/16/24 16:30 01/15/25 16:29 Lactulose (Constulose 20gm/ 30ml Udcup) 20 gm BID PRN PO CONSTIPATION 12/16/24 15:00 01/15/25 14:59 Magnesium Sulfate 50 ml @ 0 mls/hr PROTOCOL PRN IV other 12/16/24 14:30 01/15/25 14:29 Morphine Sulfate (morPHINE 2MG SYG) 1 mg Q4H PRN IVP SEVERE PAIN (7-10) 12/16/24 15:00 12/23/24 14:59 Nitroglycerin (Nitrostat) 0.4 mg PROTOCOL PRN SL CHEST PAIN 12/16/24 15:00 01/15/25 14:59 Ondansetron HCl (zoFRAN 4MG INJ) 4 mg Q6H PRN IV NAUSEA/VOMITING 12/16/24 15:00 01/15/25 14:59 Sodium Chloride 1,000 ml @ 100 mls/hr Q10H IV 12/16/24 15:00 01/15/25 14:59 Tramadol HCl (UltRAM) 50 mg Q6H PRN PO MODERATE PAIN (4-6) 12/16/24 15:00 12/21/24 14:59 Zolpidem Tartrate (AmbIEN) 5 mg HS PRN PO INSOMNIA 12/16/24 15:00 01/15/25 14:59 Diagnostics / Radiology: [COPY/PASTE HERE IF NO REPORTS PLEASE DELETE SECTION] Assessment: Abnormal imaging revealing gastric distention Abnormal LFTs Plan: EGD in am to eval gastric distention Obtain MRCP to r/o cbd stone Trend LFTs YRN CASTELLON DIRECTOR OF MATERIALS MANAGEMENT December 16, 2024 16:00
--- NOTE | 2024-12-16 16:10 | HMCIMG ---
CHEST 1VW HISTORY: Congestion COMPARISON: 11/08/1999 FINDINGS: A frontal projection of the chest was obtained. No acute pulmonary infiltrates is seen. Poststernotomy changes are seen. The heart is enlarged. Degenerative changes of the thoracolumbar spine are present. Degenerative changes are seen. Prominent markings are seen. No evidence of aortic calcification is seen. IMPRESSION: 1. No acute pulmonary infiltrate is seen.
[2024-12-16] MEDS: cefTRIAXone 2GM VIAL IVPB SCH (16:14)
[2024-12-16 16:20] LABS: AMPHET/METH SCREEN,URINE NEGATIVE (NEGATIVE); BARBITURATE SCREEN, URINE NEGATIVE (NEGATIVE); BENZODIAZEPINES SCREEN,URINE NEGATIVE (NEGATIVE); CANNABINOID SCREEN,URINE NEGATIVE (NEGATIVE); COCAINE SCREEN,URINE NEGATIVE (NEGATIVE); OPIATE SCREEN,URINE NEGATIVE (NEGATIVE); PHENCYCLIDINE SCREEN,URINE NEGATIVE (NEGATIVE)
--- NOTE | 2024-12-16 16:40 | NUR ---
PROCESS DEVELOPMENT CHEMIST CALLED REGARDING MRCP.PT IS AOX1,CANNOT DO THE PROCEDURE.
--- NOTE | 2024-12-16 17:55 | ERN ---
General Chief Complaint: Abdominal Pain Stated Complaint: TESS,HYPOGLYCEMIA,ENTERCOLITIS Time Seen by MD: 10:56 Time Seen by Midlevel: 10:56 Source: patient History of Present Illness Initial Comments 79-year-old female presents to the emergency department by EMS due to abdominal pain. Per EMS patient has been having nausea vomiting, and abdominal pain onset yesterday. EMS stated patient had glucose of 36 and amp of D50 was administered glucose recheck was 164. PMHx DM, HTN, hyperlipidemia, CAD. CABG done June 2024, cholecystectomy. Allergies: Coded Allergies: No Known Drug Allergies (Unverified Allergy, Unknown, 06/06/24) Home Meds Active Scripts Pantoprazole Sodium (Protonix) 40 Mg Ectab, 40 MG PO DAILYBKFST for 60 Days, #60 TAB.EC Prov:DAXA AVITIA MD 10/13/24 Reported Medications Dabigatran Etexilate Mesylate (Pradaxa) 150 Mg Capsule, 1 CAP PO BID for 30 Days, #60 CAP 0 Refills 12/16/24 Metoprolol Succinate (Metoprolol Succinate) 50 Mg Tab.er.24h, 1 TAB PO BID for 90 Days, TAB 0 Refills 12/16/24 Dicyclomine HCl (Dicyclomine HCl) 10 Mg Capsule, 1 CAP PO TID for irritable bowel symptoms for 30 Days, #90 CAP 0 Refills 11/07/24 Acetaminophen (Acetaminophen ER) 650 Mg Tablet.er, 1 TAB PO TID for 21 Days, #63 TAB 0 Refills 11/07/24 Linagliptin (Tradjenta) 5 Mg Tablet, 5 MG PO DAILY, TAB 11/07/24 Potassium Chloride (Potassium Chloride) 20 Meq Tab.er.prt, 1 TAB PO BID for 30 Days, #60 TAB 0 Refills 11/07/24 Aspirin (ASPIRIN 81 MG ECTAB) 81 Mg Ectab, 81 MG PO DAILY, TAB.EC 06/06/24 Atorvastatin Calcium (LIPITOR) 40 Mg Tablet, 40 MG PO HS, TAB 06/06/24 Discontinued Reported Medications Apixaban (Eliquis) 2.5 Mg Tablet, 1 TAB PO BID 10/07/24 Discontinued Scripts Metoprolol Succinate (Toprol Xl) 50 Mg Tab.er.24h, 50 MG PO DAILY, #30 TAB Prov:CORONA PACHECO MD 11/10/24 Past Medical History Past Medical History: CAD, Diabetes-Type II, High Cholesterol, Hypertension, MT Past Surgical History: CABG Female( History) History: Not Applicable ROS Dictation Constitutional: Negative for fever,chills, and weight loss Eyes: Negative for injury, pain,redness, and discharge ENT: Negative for injury,pain or swelling Cardiovascular: Negative for chest pain, palpitations, and edema Respiratory: Negative for shortness of breath, cough, and wheezing, Abdomen/GI: Positive for abdominal pain, nausea, vomiting Back: Negative for injury and pain : Negative for painful urination, bleeding or discharge MS/Extremity: Negative for injury and deformity Skin: Negative for rash, and discoloration Neuro: Negative for headache, weakness, numbness, tingling, and seizure Psych: Negative for suicide ideation, homicidal ideation, and hallucinations Physical Exam Physical Exam Dictation General: awake, alert, no acute distress Head/Face: Normocephalic, atraumatic Eyes: PERRL, EOMI, normal conjunctiva ENT: oral cavity clear, oral mucosa moist Neck: Supple, normal range of motion Cardiovascular: RRR, normal S1/S2 Respiratory: CTAB, no respiratory distress, no rales or wheezes Abdomen: Soft, mild generalized tenderness, non-distended, no guarding or rebound. Skin: Warm, dry, normal turgor, no rash MS/Extremity: Pulses equal, no cyanosis, neurovascular intact, FROM Neuro: COAx4, GCS 15, strength 5/5, CN 2-12 intact, normal cerebellar exam, normal gait Psych: Normal behavior, mood, and affect normal Results Laboratory and Microbiology Lab and Micro Result Laboratory Tests Test 12/16/24 11:16 12/16/24 11:38 12/16/24 12:31 White Blood Count 12.9 K/uL (4.8-10.8) H Red Blood Count 3.92 MIL/uL (4.00-5.50) L Hemoglobin 11.0 g/dL (12.0-16.0) L Hematocrit 39.9 % (36-48) Mean Corpuscular Volume 101.8 fL (79-99) H Mean Corpuscular Hemoglobin 28.1 pg (27.0-33.0) Mean Corpuscular Hemoglobin Concent 27.6 g/dL (32.0-36.0) L Red Cell Distribution Width 19.3 % (11.0-15.5) H Platelet Count 240 K/uL (130-400) Mean Platelet Volume 11.4 fL (7.5-10.5) H Immature Granulocyte % (Auto) 1.9 % (0-1) H Neutrophils (%) (Auto) 78.6 % (40.0-77.0) H Lymphocytes (%) (Auto) 12.1 % (21.0-51.0) L Monocytes (%) (Auto) 7.2 % (3.0-13.0) Eosinophils (%) (Auto) 0.0 % (0.0-8.0) Basophils (%) (Auto) 0.2 % (0.0-5.0) Neutrophils # (Auto) 10.2 K/uL (1.8-7.7) H Lymphocytes # (Auto) 1.6 K/uL (1.0-4.8) Monocytes # (Auto) 0.9 K/uL (0.1-1.0) Eosinophils # (Auto) 0.00 K/uL (0.00-0.70) Basophils # (Auto) 0.03 K/uL (0.00-0.20) Absolute Immature Granulocyte (auto 0.25 K/uL (0-1) Nucleated Red Blood Cells 0.9 % (0.0-0.19) H Red Blood Cell Morphology See comments Sodium Level 147 mmol/L (136-145) H Potassium Level 4.7 mmol/L (3.5-5.1) Chloride Level 106 mmol/L (101-111) Carbon Dioxide Level 7 mmol/L (21-32) *L Blood Urea Nitrogen 35 mg/dL (7-18) H Creatinine 2.6 mg/dL (0.5-1.0) H Glomerular Filtration Rate Calc 18 mL/min (>90) Random Glucose 107 mg/dL (70-105) H Total Calcium 9.6 mg/dL (8.5-10.1) Total Bilirubin 1.3 mg/dL (0.2-1.0) H Direct Bilirubin 0.9 mg/dL (0.0-0.3) H Aspartate Amino Transf (AST/SGOT) 203 U/L (10-37) H Alanine Aminotransferase (ALT/SGPT) 57 U/L (12-78) Alkaline Phosphatase 220 U/L (50-136) H Troponin I High Sensitivity 54 ng/L (4-50) *H 64 ng/L (4-50) *H Total Protein 6.2 g/dL (6.0-8.3) Albumin 2.9 g/dL (3.5-5.0) L Lipase 34 U/L (16-77) Whole Blood Glucose 101 MG/DL (70-110) Serum Alcohol < 3 mg/dL (0-10) Labs Reviewed?: Yes EKG/XRAY/US/CT/MRI EKG Comment Date: 12/16/2024 Time: 11 11 Rate: 113 EKG interpretation: Atrial fibrillation, ventricular premature complex, low voltage extremity leads, prolonged QT interval, no STEMI Reviewed by ED Attending CT Scan Comment REASON: general abdominal pain ORDERING PHYSICIAN: IVY ANDRADE PROCEDURE: ABD PEL WO - CT ABDOMEN/PELVIS W/O CONTRAST CT ABDOMEN/PELVIS W/O CONTRAST HISTORY: Abnormal pain COMPARISON: None TECHNIQUE: Multiple sequential axial images of the abdomen and pelvis were obtained from the dome of the diaphragm through symphysis pubis. Patient was November 07, 2024 through intravenous route. Oral contrast was not given. FINDINGS: Small bilateral pleural effusions are seen. Bilateral pulmonary infiltrates are seen. Degenerative changes of the thoracolumbar spine are present. The heart is not enlarged. Liver measured 12.4 cm. Gastric distention seen with air-fluid level. Postcholecystectomy changes are seen. Mild small bowel dilatation seen with fluid-filled may be related to enterocolitis. Uterus is enlarged suggests a fibroid uterus. There is right renal cyst measuring 4 cm. The liver, spleen, adrenal glands and pancreas are unremarkable. There is no evidence of hydronephrosis bilaterally. No evidence of renal stone is seen. Fecal material is seen in the colon. There are normal size retroperitoneal and mesenteric lymph nodes. No ascites is seen. Atherosclerotic changes are present. Pelvic sidewalls are symmetric bilaterally. Bladder is poorly distended. IMPRESSION: 1. Gastric distention. No small bowel dilatation. There may be related to enterocolitis. 2. Enlarged uterus suggesting fibroid uterus. CT was performed with one or more following dose reduction techniques: automated exposure control, adjustment of the mA and kv according to patient's size, or use of a iterative reconstruction technique. DICTATED BY: JENIFER NGO MD DATE: 12/16/24 1314 [facility] MDM: Differential diagnosis: TESS, small bowel obstruction, gastritis Rationale: 79-year-old female presents to the emergency department by EMS due to abdominal pain. Per EMS patient has been having nausea vomiting, and abdominal pain onset yesterday. EMS stated patient had glucose of 36 and amp of D50 was administered glucose recheck was 164. PMHx DM, HTN, hyperlipidemia, CAD. CABG done June 2024, cholecystectomy. Labs obtained indicate leukocytosis of 12.9, anemia with hemoglobin of 11. TESS with BUN 35 and creatinine 2.6 elevated, previous creatinine 1.0. Elevated LFTs T bili 1.3, AST 203, alk-phos 220. Initial troponin 54, repeat troponin 64. UA negative for urinary tract infection. Toxicology negative. CT abdomen and pelvis obtained indicating gastric distention no small bowel dilation may be related to enterocolitis, enlarged uterus suggestive of fibroid uterus, post cholecystectomy. Patient and family member were educated on findings, diagnosis, decision for admission. Family member verbalized understanding and agrees with admission. Case discussed with hospitalist who accepted admission. Previous outside records reviewed: Old ER visits. Risk of complication and/or morbidity or mortality of patient management: None Medications-Per medication reconciliation Need for hospitalization: Patient does meet criteria for hospitalization. Need for emergency major/minor surgery: No There are no social concerns with this patient. Prescription drug management Prescriptions will include symptomatic care Patient's prior external medical records from other ER visits were reviewed by me as indicated. Prior testing and results from previous visits were reviewed. Prior tests were taken into account with medical decision making and resource utilization, independent historian/historians were used to obtain complete medical history. I independently interpreted the test that were performed, results were reviewed by me and considered findings on radiology if ordered. Medical management and examination interpretation discussions were had by me with other qualified healthcare professionals as indicated for the patient's care. ED Course Orders Procedure Category Date Status Time Cbc With Differential LAB 12/16/24 Complete 10:56 Basic Metabolic Panel LAB 12/16/24 Complete 10:56 Hepatic Function Panel LAB 12/16/24 Complete 10:56 Lipase LAB 12/16/24 Complete 10:56 Bedside Glucose CPOE 12/16/24 Transmitted Fingerstick 10:56 12 Lead Ekg Tracing- EKG 12/16/24 Complete Technical 10:56 Troponin I High LAB 12/16/24 Complete Sensitivity 10:56 Morphine 2mg Syg PHA 12/16/24 Complete (Morphine 2mg Syg) 12:30 Ct Abdomen/Pelvis W/O CT 12/16/24 Resulted Contrast 12:20 Troponin I High LAB 12/16/24 Complete Sensitivity 12:20 0.9%Nacl 1000ml (Ns PHA 12/16/24 Complete 1000ml) 12:30 Drug Screen Urine LAB 12/16/24 Complete 13:59 Alcohol, Blood LAB 12/16/24 Complete 13:59 Initiate ANA 12/16/24 In Process Hyperglycemia Protoco 14:28 Insulin Regular, PHA 12/16/24 In Process Human 3ml (Humulin R 16:30 Initiate Hypoglycemia ANA 12/16/24 In Process Protocol 14:28 Dextrose 50%-Water PHA 12/16/24 In Process (D50w) 14:30 Glucagon 1mg Kit PHA 12/16/24 In Process (Glucagon 1mg Kit) 14:30 Magnesium 2gm Premix PHA 12/16/24 In Process 50ml (Magnesium 2gm 14:30 B-Type Natriuretic LAB 12/17/24 Complete Peptide 04:00 Cbc With Differential LAB 12/17/24 Complete 04:00 Hemoglobin A1c LAB 12/17/24 Complete 04:00 Influenza Type A & B, LAB 12/16/24 Logged Rapid 14:35 Covid19 (Sars Antigen LAB 12/16/24 Logged Rapid) 14:35 Lactic Acid LAB 12/17/24 Complete 04:00 Lipase LAB 12/17/24 Complete 04:00 Procalcitonin LAB 12/17/24 Complete 04:00 Current Medications Medications (Trade) Dose Ordered Sig/Jesus Route PRN Reason Start Time Stop Time Status Last Admin Dose Admin Dextrose (D50w) 50 ml AD PRN IV HYPOGLYCEMIA PROTOCOL 12/16/24 14:30 01/15/25 14:29 12/17/24 03:49 Glucagon (Glucagon 1mg Kit) 1 mg AD PRN IM HYPOGLYCEMIA PROTOCOL 12/16/24 14:30 01/15/25 14:29 Magnesium Sulfate 50 ml @ 0 mls/hr PROTOCOL PRN IV other 12/16/24 14:30 01/15/25 14:29 Morphine Sulfate (morPHINE 2MG SYG) 1 mg ONCE ONCE IVP 12/16/24 12:30 12/16/24 12:31 DC 12/16/24 14:32 Sodium Chloride 1,000 ml @ 0 mls/hr ONCE ONCE IV 12/16/24 12:30 12/16/24 12:31 DC 12/16/24 13:00 Vital Signs Date Time Temp Pulse Resp B/P (MAP) Pulse Ox O2 Delivery O2 Flow Rate FiO2 12/16/24 10:47 98 18 164/88 100 Nasal Cannula 2.0 Critical Care Note Critical Time: 30 minutes Comments Critical Care Procedure Note Authorized and Performed by: me Total critical care time: Approximately 36 minutes Due to a high probability of clinically significant, life threatening deterioration, the patient required my highest level of preparedness to intervene emergently and I personally spent this critical care time directly and personally managing the patient. This critical care time included obtaining a history; examining the patient; pulse oximetry; ordering and review of studies; arranging urgent treatment with development of a management plan; evaluation of patient's response to treatment; frequent reassessment; and, discussions with other providers. This critical care time was performed to assess and manage the high probability of imminent, life-threatening deterioration that could result in multi-organ failure. It was exclusive of separately billable procedures and treating other patients and teaching time. Please see MDM section and the rest of the note for further information on patient assessment and treatment. DX & DISP Disposition: Inpatient Decision to Admit Date: December 16, 2024 Departure Impression: Primary Impression: TESS (acute kidney injury) Additional Impressions: Leukocytosis, Anemia, Elevated LFTs, Elevated troponin, Enterocolitis, Afib, Hypoglycemia Condition: Stable Referrals: KATHRYN CHILDRESS MD (PCP) I performed the substantive portion of the visit. I have reviewed and personally made and approve the management plan that is documented in the notes by myself or the CRISTI. I acknowledge full responsibility for the patient's management plan. IVY ANDRADE December 16, 2024 17:55
[2024-12-16 18:10] VITALS: BP 103/52; PULSE 64; RESP 18; TEMP 97.8
[2024-12-16 18:30] VITALS: O2SAT 97
[2024-12-16] MEDS ORDERED: METO-391 PO (18:41)
[2024-12-16] MEDS ORDERED: DABI150C PO (18:41)
[2024-12-16] MEDS: FAMOTIDINE 20MG VIAL IV SCH (19:53)
[2024-12-16] MEDS: morPHINE 2 MG SYG IVP PRN (19:56)
[2024-12-16] MEDS: DEXTROSE 50%-WATER 50 ML DISP.SYRIN IV PRN (20:50)
[2024-12-16] MEDS: INSULIN humuLIN R 100 UNIT/ML 3ML SQ SCH (20:50)
[2024-12-16 22:35] VITALS: BP 97/48; PULSE 88; RESP 18
[2024-12-16] MEDS: HEParin 5,000 UNIT VIAL SQ SCH (22:45)
[2024-12-16 23:48] VITALS: O2SAT 97
[2024-12-17] VITALS (107 sets, daily range): BP systolic 42–141; BP diastolic 27–99; PULSE 44–148; RESP 11–22; TEMP 93–98.2; O2SAT 97–100
[2024-12-17] MEDS: 0.9%NACL 1000ML 1,000 ML IV SCH ×2 (01:12→04:30)
--- NOTE | 2024-12-17 03:52 | NUR ---
NOTE CANOE INSPECTOR FINAL NOTIFIED NURSE OF LOW B/P READING 77/56, B/P WAS RE-CHECKED 91/44 PT STARED WITH AGONAL BREATHING, BLOOD SUGAR WAS 29 ONE AMP OF D50 GIVEN. ALIGNMENT SPECIALIST JOÃO CALLED AND WILL COME SEE PT. Addendum: 12/17/24 at 0738 by BESS SHARIF LVN LVN O2 WAS PLACED AT THIS TIME 3L VIA NC.
--- NOTE | 2024-12-17 04:03 | NUR ---
B/P CONTINUES TO BE LOW AND HAVING TROUBLE BREATHING RAPID CALLED AT THIS TIME.
[2024-12-17] MEDS ORDERED: DOPamine 800MG/D5 250ML 250 ML IV PRN ×2 (04:30→05:30)
--- NOTE | 2024-12-17 04:30 | NUR ---
Patient arrived to the ICU. Ktaja Pandya at the bedside. Provider ordered fentanyl drip and d5w at 100 ml/hr.
[2024-12-17 04:58] LABS: ABG BASE EXCESS -26.8 mmol/L (-2.0-3.0); ABG HCO3 4.5 mmol/L (21.0-28.0); ABG OXYGEN SATURATION 92.8 % (94.0-98.0); ABG PCO2 24 mmHg (32-45); ABG PH 6.888 (7.350-7.450); CARBON MONOXIDE 0.3 % (0.5-1.5); HHb 7.1; PO2, ARTERIAL BG 86.2 mmHg (83.0-108.0); VENT MODE, BG AC VC (ROOM AIR)
[2024-12-17] MEDS ORDERED: FENTanyl CITRate PF 0.05 MG/ML 1,000 MCG in 0.9%NACL 100ML 100 ML IV PRN (05:00)
[2024-12-17] MEDS ORDERED: NITROGLYCERIN 1GM OINT 1 INCH/1GM TD PRN (05:00)
[2024-12-17] MEDS: DEXTROSE 5%-WATER 1,000 ML IV SCH (05:00)
[2024-12-17] MEDS: FENTanyl 1000MCG+NS 100ML 100 ML IV SCH (05:02)
--- NOTE | 2024-12-17 05:13 | NUR ---
Katja Pandya also ordered 100 MEQ Na Bicarbonate, and 150 MEQ na bicarb drip to run at 100 ml/hr in d5w, also stop infusion of d5w. Provider also ordered 40 mg iv push of protonix and a protonix drip due to gi bleed. Addendum: 12/17/24 at 0515 by LYNN PARR RN RN Provider wants a repeat abg in 2 hours.
[2024-12-17 05:14] LABS: BASOPHILS # (AUTO) 0.02 K/uL (0.00-0.20); BASOPHILS % (AUTO) 0.2 % (0.0-5.0); HEMATOCRIT 31.2 % (36-48); IMMATURE GRANULOCYTE ABSOLUTE 0.12 K/uL (0-1); LYMPHOCYTES # (AUTO) 2.2 K/uL (1.0-4.8); LYMPHOCYTES % (AUTO) 17.5 % (21.0-51.0); MEAN CORPUSCULAR HEMOGLOBIN 28.1 pg (27.0-33.0); MEAN CORPUSCULAR HGB CONC 26.3 g/dL (32.0-36.0); MEAN CORPUSCULAR VOLUME 106.8 fL (79-99); MONOCYTES # (AUTO) 0.2 K/uL (0.1-1.0); MONOCYTES % (AUTO) 1.9 % (3.0-13.0); NEUTROPHILS # (AUTO) 9.9 K/uL (1.8-7.7); NEUTROPHILS % (AUTO) 79.4 % (40.0-77.0); NUCLEATED RED BLOOD CELLS 1.9 % (0.0-0.19); PLATELET COUNT (AUTO) 179 K/uL (130-400); RED BLOOD CELL COUNT(AUTO) 2.92 MIL/uL (4.00-5.50); RED CELL DISTRIBUTION WIDTH 19.6 % (11.0-15.5); WHITE BLOOD COUNT (AUTO) 12.4 K/uL (4.8-10.8)
--- NOTE | 2024-12-17 05:16 | NUR ---
Provider also wants ns 100 ml/hr to be discontinued.
[2024-12-17] MEDS ORDERED: PHARMACY COMMUNICATION MISC ONE (05:30)
[2024-12-17 05:31] LABS: INR > 8.00 (0.85-1.15); PROTHROMBIN TIME 85.4 SEC (9.6-11.6)
[2024-12-17 05:38] LABS: HEMOGLOBIN A1C 6.6 % (4.0-6.0)
--- NOTE | 2024-12-17 05:40 | PN ---
Rapid Response Note AND CODE BLUE Event Date: [12/17/2024 ] Event Time: [0403 ] Code Status: [FULL CODE ] Events Prior to Rapid Response: [ Patient was admitted on 12/16/24 for acute kidney injury severe abdominal pain and severe hypoglycemia.This morning approximately 0400 am patient's blood sugar was 29 and D50 IV was given per primary nurse however patient's BP has been 91/44 and HR 44 and patient was in agonal breathing blood sugar was rechecked and it was 134 a rapid response was activated.Dopamine drip was then started started for a BP that went down to 77/33 and patient condition continued to decline remains agonal breathing and a rapid response converted to a code blue ] Event: [An ER MD successfully intubated the patient and patient was then transferred to the ICU ] SHARIF MOYER December 17, 2024 05:40
[2024-12-17 05:43] LABS: ALBUMIN 2.1 g/dL (3.5-5.0); BILIRUBIN,DIRECT 0.6 mg/dL (0.0-0.3); BILIRUBIN,TOTAL 1.4 mg/dL (0.2-1.0); CREATININE 2.9 mg/dL (0.5-1.0); POTASSIUM 5.2 mmol/L (3.5-5.1); TOTAL PROTEIN, SERUM 4.7 g/dL (6.0-8.3)
[2024-12-17 05:47] LABS: MAGNESIUM 4.4 mg/dL (1.80-2.40)
[2024-12-17] MEDS: PANTOPrazole 40MG INJ 80 MG in 0.9%NACL 100ML 100 ML IV SCH (05:50)
--- NOTE | 2024-12-17 05:50 | NUR ---
Reported all critical labs to Katja Pandya NP.
[2024-12-17] MEDS: PANTOPrazole 40 MG/VIAL IVP ONE ×2 (05:53)
[2024-12-17] MEDS: SODIUM BICARB 50MEQ 50ML VIAL IV ONE ×2 (05:55→14:44)
[2024-12-17] MEDS: SODIUM BICARB 8.4% 50ML SYRING 150 MEQ in DEXTROSE 5%-WATER 1,000 ML IVP SCH (05:55)
[2024-12-17] MEDS: SODIUM BICARB 50MEQ 50ML VIAL 100 ML ONE (05:56)
--- NOTE | 2024-12-17 06:46 | NUR ---
Paged benchmark.As per Katja Pandya NP ok to give patient plasma.Provider is aware of patients hypothermia. Patient is on brianna hugger.
--- NOTE | 2024-12-17 07:40 | HMCIMG ---
CHEST 1VW HISTORY: Agonal breathing COMPARISON: 12/16/2004 FINDINGS: A frontal projection of the chest was obtained. There are bilateral pulmonary infiltrates suggestive of pulmonary vascular congestion with possible superimposed pneumonitis. Poststernotomy changes are seen. The heart is enlarged. Degenerative changes of the thoracolumbar spine are present. All the lines and tubes are again seen in place. No evidence of aortic calcification is seen. IMPRESSION: 1. Bilateral pulmonary infiltrates are seen suggestive of pulmonary vascular congestion with possible superimposed pneumonitis.
[2024-12-17] MEDS ORDERED: VANCOMYCIN PROTOCOL PER PHARMACY IV SCH (08:30)
[2024-12-17] MEDS ORDERED: PANTOPrazole 40 MG/VIAL IVP SCH (09:00)
--- NOTE | 2024-12-17 09:10 | NUR ---
Dr. Helms rounded on patient. Updated MD on patient status. MD ordered Abd. US and LR bolus to be given.
[2024-12-17] MEDS: PHYTONADIONE 10 MG in 0.9%NACL 50ML 50 ML IVPB SCH (09:12)
[2024-12-17] MEDS: ceFEPime HCL 1 GM VIAL IVPB SCH (09:41)
--- NOTE | 2024-12-17 10:30 | HMCIMG ---
US ABDOMINAL RUQ\[id number]\LTD HISTORY: Common bile duct dilatation COMPARISON: None TECHNIQUE: Right upper quadrant abdominal ultrasound study was performed. FINDINGS: Liver measures 15 cm. There is right hepatic cyst measuring 12 x 10 x 13 mm. The visualized portion of the pancreas is within normal limits. Liver is echogenic consistent with liver parenchymal disease. Gallbladder has been removed. Common duct is not well visualized. Study is limited due to open bowel gas. Right kidney measures 8.6 x 3.9 x 3.1 cm. No hydronephrosis is seen of the right kidney. There is right upper pole renal cyst measuring 3.9 cm. Minimal ascites is seen. IMPRESSION: 1. Gallbladder has been removed. Common duct is not well visualized. There is right hepatic cyst measuring 13 mm. 2. No hydronephrosis is seen. A simple right upper pole renal cyst measuring 3.9 cm.
[2024-12-17] MEDS: LACTATED RINGERS 1000ML IV ONE (10:38)
[2024-12-17 10:51] LABS: HEMATOCRIT 33.8 % (36-48)
--- NOTE | 2024-12-17 10:51 | PN ---
[facility] PROGRESS NOTE Date of Service: December 17, 2024 Time of Service: 10:33 SUBJECTIVE: 12/17 patient seen at bedside, last night rapid response was called that was converted to a code blue, the patient was emergently intubated and moved to the ICU and started on pressors. She is extremely acidotic with a pH of 6.8 and a lactic acid of 22, antibiotics have been extended to vanc and cefepime, she is on aggressive fluid resuscitation. Cultures have been ordered. Her INR was greater than eight, fresh frozen plasma has been ordered and vitamin K will be administered. She has been started on bicarb and is intubated. A G-tube is in place and is on intermittent suction with some bloody return. Hemoglobin decreased from 11.0 down to 8.2, we will order repeat hemoglobin, patient may need massive transfusion protocol if it continues to drop rapidly. Abdominal ultrasound of right upper quadrant with Dopplers has been ordered to assess for Budd-Chiari syndrome and hepatic/biliary abnormalities. Patient has a very poor prognosis, discussed with family member at bedside who indicates understanding. REVIEW OF SYSTEMS 12 point ROS negative unless noted in HPI PHYSICAL EXAM GENERAL APPEARANCE: The patient is awake, alert, and oriented, in no acute cardiopulmonary distress. NEUROLOGICAL: Cranial nerves II-XII grossly intact. Motor is 5/5 in bilateral upper and lower extremities proximal to distal. No sensory deficits. HEENT: Face is symmetric. Pupils are equal and reactive. Extraocular movements are intact. NECK: Supple. No JVD. No thyromegaly. No submental, submandibular, pre- /postauricular, occipital or supraclavicular lymphadenopathy. CHEST: Normal chest expansion. No Telemetry. LUNGS: Absence of any rales, rhonchi or any wheezing. CARDIOVASCULAR: Regular. S1 and S2 normal. No appreciable rubs, murmurs or gallops. ABDOMEN: Soft, nontender, and nondistended. There is no rebound, voluntary guarding, or rigidity. : Deferred. No Isbell. EXTREMITIES: Non-edematous and not cyanotic. No clubbing. Good capillary refill. SKIN: No skin breakdown. Vital Signs (last 8hr) Date Time Temp Pulse Resp B/P (MAP) Pulse Ox O2 Delivery O2 Flow Rate FiO2 12/17/24 09:31 113 50 12/17/24 08:00 100 Ventilator+ 100 12/17/24 06:58 94 15 111/58 (75) 100 12/17/24 06:53 87 16 128/59 (82) 100 12/17/24 06:48 91 17 116/53 (74) 100 12/17/24 06:43 89 16 114/61 (78) 100 12/17/24 06:38 84 16 115/51 (72) 100 12/17/24 06:37 87 50 12/17/24 06:33 87 16 119/60 (79) 99 12/17/24 06:28 95 16 127/51 (76) 100 12/17/24 06:23 95 16 124/56 (78) 100 12/17/24 06:18 91 14 122/59 (80) 100 12/17/24 06:13 89 16 105/71 (82) 100 12/17/24 06:08 88 16 111/61 (78) 100 12/17/24 06:03 90 15 108/62 (77) 99 12/17/24 05:58 88 15 108/59 (75) 100 12/17/24 05:53 83 15 103/50 (67) 100 12/17/24 05:48 89 15 110/76 (87) 100 12/17/24 05:43 83 15 109/61 (77) 100 12/17/24 05:38 91 15 116/48 (70) 100 12/17/24 05:33 83 17 103/55 (71) 100 12/17/24 05:28 91 14 101/49 (66) 100 12/17/24 05:23 88 16 99/44 (62) 100 12/17/24 05:18 87 15 110/43 (65) 100 12/17/24 05:13 81 16 101/46 (64) 100 12/17/24 05:09 91 15 127/46 (73) 100 12/17/24 05:03 86 14 97/39 (58) 100 12/17/24 05:00 100 Ventilator+ 100 12/17/24 04:58 75 12 84/36 (52) 100 12/17/24 04:53 82 16 102/54 (70) 100 12/17/24 04:43 93.0 72 16 90/39 (56) 99 12/17/24 04:42 78 13 125/47 (73) 100 12/17/24 04:40 81 50 12/17/24 03:45 75 17 77/56 90 Nasal Cannula 2.0 12/17/24 03:44 44 12 91/44 99 Nasal Cannula 3.0 LABS: Laboratory: Test 12/17/24 08:54 12/17/24 08:09 12/17/24 05:00 12/17/24 04:56 Range/Units Lactic Acid Level 22.8 H 0.8-2.5 mmol/L Whole Blood Glucose 149 H 70-110 MG/DL White Blood Count 12.4 H 4.8-10.8 K/uL Red Blood Count 2.92 #L 4.00-5.50 MIL/uL Hemoglobin 8.2 #L 12.0-16.0 g/dL Hematocrit 31.2 #L 36-48 % Mean Corpuscular Volume 106.8 H 79-99 fL Mean Corpuscular Hemoglobin 28.1 27.0-33.0 pg Mean Corpuscular Hemoglobin Concent 26.3 L 32.0-36.0 g/dL Red Cell Distribution Width 19.6 H 11.0-15.5 % Platelet Count 179 # 130-400 K/uL Mean Platelet Volume 12.1 H 7.5-10.5 fL Immature Granulocyte % (Auto) 1.0 0-1 % Neutrophils (%) (Auto) 79.4 H 40.0-77.0 % Lymphocytes (%) (Auto) 17.5 L 21.0-51.0 % Monocytes (%) (Auto) 1.9 L 3.0-13.0 % Eosinophils (%) (Auto) 0.0 0.0-8.0 % Basophils (%) (Auto) 0.2 0.0-5.0 % Neutrophils # (Auto) 9.9 H 1.8-7.7 K/uL Lymphocytes # (Auto) 2.2 1.0-4.8 K/uL Monocytes # (Auto) 0.2 0.1-1.0 K/uL Eosinophils # (Auto) 0.00 0.00-0.70 K/uL Basophils # (Auto) 0.02 0.00-0.20 K/uL Absolute Immature Granulocyte (auto 0.12 0-1 K/uL Nucleated Red Blood Cells 1.9 H 0.0-0.19 % Prothrombin Time 85.4 *H 9.6-11.6 SEC Prothromb Time International Ratio > 8.00 *H 0.85-1.15 Sodium Level 144 136-145 mmol/L Potassium Level 5.2 H 3.5-5.1 mmol/L Chloride Level 107 101-111 mmol/L Carbon Dioxide Level 7 *L 21-32 mmol/L Blood Urea Nitrogen 34 H 7-18 mg/dL Creatinine 2.9 H 0.5-1.0 mg/dL Glomerular Filtration Rate Calc 16 >90 mL/min Random Glucose 173 #H 70-105 mg/dL Hemoglobin A1c 6.6 H 4.0-6.0 % Estimated Average Glucose (eAG) 143 H 70-126 mg/dL Total Calcium 8.9 8.5-10.1 mg/dL Magnesium Level 4.40 *H 1.80-2.40 mg/dL Total Bilirubin 1.4 H 0.2-1.0 mg/dL Direct Bilirubin 0.6 #H 0.0-0.3 mg/dL Aspartate Amino Transf (AST/SGOT) 717 *H 10-37 U/L Alanine Aminotransferase (ALT/SGPT) 146 #H 12-78 U/L Alkaline Phosphatase 157 #H 50-136 U/L Total Creatine Kinase 609 #*H 21-232 U/L B-Type Natriuretic Peptide 2950 H 0-100 pg/mL Total Protein 4.7 #L 6.0-8.3 g/dL Albumin 2.1 #L 3.5-5.0 g/dL Lipase 82 H 16-77 U/L Procalcitonin 0.34 0.05-0.5 ng/mL Blood Gas Specimen Type Arterial Arterial Blood pH 6.888 *L 7.350-7.450 Arterial Blood Partial Pressure CO2 24 L 32-45 mmHg Arterial Blood Partial Pressure O2 86.2 83.0-108.0 mmHg Arterial Blood HCO3 4.5 L 21.0-28.0 mmol/L Arterial Blood Oxygen Saturation 92.8 L 94.0-98.0 % Arterial Blood Base Excess -26.8 L -2.0-3.0 mmol/L Hemoglobin (Blood Gas) 8.5 L 12.0-16.0 g/dL Sodium (Blood Gas) 139 136-145 MMOL/L Bedside Potassium (Blood Gas) 5.8 H 3.4-4.5 MMOL/L Bedside Chloride (Blood Gas) 107 98-107 MMOL/L Bedside Glucose (Blood Gas) 117 H 65-95 MG/DL Bedside Ionized Calcium (Blood Gas) 1.15 1.15-1.33 MMOL/L Bedside Lactic Acid (Blood Gas) 21.11 *H 0.36-0.75 MMOL/L Blood Gas Temperature 37.0 35.5-37.0 CELSIUS Blood Gas Respiration Rate 18.0 min. Blood Gas Vent Mode AC VC ROOM AIR FiO2 50.0 % Blood Gas Tidal Volume 400 ml Blood Gas PEEP 5 cm H2O Blood Gas Specimen Comment CRUZ RN ,LB Test 12/16/24 15:23 12/16/24 12:31 12/16/24 11:16 Range/Units Urine Color YELLOW YELLOW Urine Appearance CLOUDY H CLEAR Urine pH 6.0 5.0-8.0 Urine Specific [place] 1.020 1.001-1.031 Urine Protein >=300 H NEGATIVE mg/dL Urine Glucose (UA) NEGATIVE NEGATIVE mg/dL Urine Ketones NEGATIVE NEGATIVE mg/dL Urine Occult Blood LARGE H NEGATIVE Urine Nitrate NEGATIVE NEGATIVE Urine Bilirubin SMALL H NEGATIVE mg/dL Urine Urobilinogen 0.2 0.2-1.0 mg/dL Urine Leukocyte Esterase NEGATIVE NEGATIVE Justin/uL Urine RBC 11-25 H 0-1 /HPF Urine WBC 0-1 0-1 /HPF Urine Squamous Epithelial Cells None Seen 0-2 /HPF Urine Amorphous Crystals (Auto) Many H None Seen /LPF Urine Bacteria Few None Seen /HPF Urine Opiates Screen NEGATIVE NEGATIVE Urine Barbiturates Screen NEGATIVE NEGATIVE Urine Phencyclidine Screen NEGATIVE NEGATIVE Urine Amphetamines Screen NEGATIVE NEGATIVE Urine Benzodiazepines Screen NEGATIVE NEGATIVE Urine Cocaine Screen NEGATIVE NEGATIVE Urine Marijuana (THC) Screen NEGATIVE NEGATIVE Troponin I High Sensitivity 64 *H 4-50 ng/L Serum Alcohol < 3 0-10 mg/dL Red Blood Cell Morphology See comments Current Medications Medications (Trade) Dose Ordered Sig/Jesus Route PRN Reason Start Time Stop Time Status Last Admin Dose Admin Acetaminophen (TYLenol 325MG TAB) 650 mg Q4H PRN PO MILD PAIN (1-3) 12/16/24 15:00 01/15/25 14:59 Acetaminophen (TYLenol 325MG TAB) 650 mg Q6H PRN PO MILD PAIN (1-3) 12/16/24 15:00 12/16/24 14:49 DC Acetaminophen (TYLenol 325MG TAB) 650 mg Q6H PRN PO TEMPERATURE GREATER THAN 101.5 12/16/24 15:00 01/15/25 14:59 Al Hydroxide/Mg Hydroxide (MAALox PLUS 30ML) 30 ml Q6H PRN PO INDIGESTION 12/16/24 15:00 01/15/25 14:59 Atorvastatin Calcium (LIPItor 40MG) 40 mg HS PO 12/17/24 21:00 01/16/25 20:59 Cefepime HCl (MAXipime 1 GM vial) 1 gm Q24H IVPB 12/17/24 08:30 12/27/24 08:29 12/17/24 09:41 1 GM Ceftriaxone Sodium 2 gm/ Sodium Chloride 100 ml @ 200 mls/hr Q24H IV 12/16/24 15:00 12/16/24 14:49 DC Ceftriaxone Sodium (Rocephin 2gm Inj) 2 gm Q24H IVPB 12/16/24 15:00 12/17/24 08:20 DC 12/16/24 16:14 2 GM Dextrose 1,000 ml @ 100 mls/hr Q10H IV 12/17/24 05:00 01/16/25 04:59 Dextrose (D50w) 50 ml AD PRN IV HYPOGLYCEMIA PROTOCOL 12/16/24 14:30 01/15/25 14:29 12/17/24 03:49 50 ML Diphenhydramine HCl (BENAdryl INJ) 25 mg Q6H PRN IV SEVERE ITCHING/RASH 12/16/24 15:00 01/15/25 14:59 Dopamine HCl/ Dextrose 250 ml @ 0 mls/hr PROTOCOL PRN IV INCREASED BLOOD PRESSURE 12/17/24 04:30 12/17/24 05:14 DC Dopamine HCl/ Dextrose 250 ml @ 0 mls/hr PROTOCOL PRN IV BP/HR CONTROL 12/17/24 05:30 01/16/25 05:29 Famotidine (Pepcid 20mg Vial) 20 mg BID PRN IV NAUSEA/VOMITING 12/16/24 15:00 12/16/24 14:49 DC Famotidine (Pepcid 20mg Vial) 20 mg Q48H IV 12/16/24 21:00 12/17/24 05:03 DC 12/16/24 19:53 20 MG Fentanyl Citrate 100 ml @ 0 mls/hr PROTOCOL IV 12/17/24 05:00 12/24/24 04:59 12/17/24 05:02 10 MLS/HR Fentanyl Citrate 1000 mcg/Sodium Chloride 120 ml @ 0 mls/hr AD PRN IV TITRATE 12/17/24 05:00 12/17/24 04:52 DC Glucagon (Glucagon 1mg Kit) 1 mg AD PRN IM HYPOGLYCEMIA PROTOCOL 12/16/24 14:30 01/15/25 14:29 Guaifenesin/ Dextromethorphan (RobiTUSSin DM 200/20MG 10ML) 10 ml Q4H PRN PO COUGH 12/16/24 15:00 01/15/25 14:59 Heparin Sodium (Porcine) (HEParin 5,000 UNIT VIAL) 5,000 unit BID SQ 12/16/24 21:00 12/17/24 05:46 DC 12/16/24 22:45 5,000 UNIT Hydralazine HCl (APRESOLine 20MG INJ) 10 mg Q6H PRN IV For:SBP above 160;DBP above 90 12/16/24 15:00 01/15/25 14:59 Insulin Human Regular (humuLIN R 100 UNIT/ML 3ML) INSULIN SLIDING SCAL... ACHS SQ 12/16/24 16:30 01/15/25 16:29 Lactulose (Constulose 20gm/ 30ml Udcup) 20 gm BID PRN PO CONSTIPATION 12/16/24 15:00 01/15/25 14:59 Magnesium Sulfate 50 ml @ 0 mls/hr PROTOCOL PRN IV other 12/16/24 14:30 01/15/25 14:29 Morphine Sulfate (morPHINE 2MG SYG) 1 mg Q4H PRN IVP SEVERE PAIN (7-10) 12/16/24 15:00 12/23/24 14:59 12/16/24 19:56 1 MG Nitroglycerin (Nitroglycerin 1gm Oint) 1 inch PROTOCOL PRN TD EXTRAVASATION 12/17/24 05:00 01/16/25 04:59 Nitroglycerin (Nitrostat) 0.4 mg PROTOCOL PRN SL CHEST PAIN 12/16/24 15:00 01/15/25 14:59 Ondansetron HCl (zoFRAN 4MG INJ) 4 mg Q6H PRN IV NAUSEA/VOMITING 12/16/24 15:00 01/15/25 14:59 Pantoprazole Sodium (PROTonix 40MG INJ) 40 mg DAILY IVP 12/17/24 09:00 12/17/24 05:14 DC Pantoprazole Sodium 80 mg/ Sodium Chloride 100 ml @ 10 mls/hr Q10H IV 12/17/24 05:00 01/16/25 04:59 12/17/24 05:50 10 MLS/HR Phytonadione 10 mg/Sodium Chloride 50 ml @ 100 mls/hr AD IVPB 12/17/24 08:30 01/16/25 08:29 12/17/24 09:12 100 MLS/HR Sodium Bicarbonate 150 meq/Dextrose 1,150 ml @ 100 mls/hr [id number] IVP 12/17/24 05:30 01/16/25 05:29 12/17/24 05:55 100 MLS/HR Sodium Chloride 1,000 ml @ 100 mls/hr Q10H IV 12/16/24 15:00 12/17/24 04:53 DC 12/17/24 01:12 100 MLS/HR Sodium Chloride 1,000 ml @ 100 mls/hr Q10H IV 12/17/24 04:30 01/16/25 04:29 Terbutaline Sulfate (BRETHine) 1 mg PROTOCOL PRN SQ EXTRAVASATION 12/17/24 05:00 01/16/25 04:59 Tramadol HCl (UltRAM) 50 mg Q6H PRN PO MODERATE PAIN (4-6) 12/16/24 15:00 12/21/24 14:59 Vancomycin HCl (Vancomycin Protocol) 1 each AD IV 12/17/24 08:30 12/31/24 08:29 Zolpidem Tartrate (AmbIEN) 5 mg HS PRN PO INSOMNIA 12/16/24 15:00 01/15/25 14:59 DIAGNOSTICS / RADIOLOGY: [ ] ASSESSMENT: Acute kidney injury POA Severe hypoglycemia POA Lactic acidosis Liver dysfunction Coagulopathy secondary to liver dysfunction Acute hypoxic respiratory failure s/p intubation (12/16/24) Enterocolitis per CT abdomen/pelvis POA Fibroid uterus per CT abdomen/pelvis POA Severe abdominal pain POA Acute dehydration due to above POA Uncontrolled diabetes mellitus type 2 with hypoglycemia POA Uncontrolled hypertension POA Leukocytosis WBC 12.9 Electrolyte imbalance hyponatremia Na 147 AFib controlled POA Hypertroponinemia POA Severe malnutrition POA Multifactorial anemia POA Acute diastolic congestive heart failure EF 50 to 55% per 2D echo 11/07/2024 Hyperlipidemia POA Coronary Artery Disease s/p CABG 07/12 GERD POA Osteoarthritis POA History of cholecystectomy October 2024 PLAN: - Continue ICU - Continue pressors, wean as able - Transfuse fresh frozen plasma - Administer vitamin K - Continue sodium Bicarb - US of RUQ with doppler ordered, will follow up - Continue mechanical ventilation, wean as able - Continue aggressive fluid resuscitation - Discontinue rocephin - Start Vancomycin and Cefepime - Repeat H/H, transfuse if < 7.0 - Trend lactic acid - Continue hypoglycemia protocol - Blood cultures ordered, will follow up - Critical care consulted, appreciate recommendations Disposition: Pending improvement in clinical status Greater than 35 minutes ICU time spent in care of this patient CORONA PACHECO MD December 17, 2024 10:51
[2024-12-17] MEDS ORDERED: octREOtide aceTATe 500 MCG in 0.9%NACL 100ML 97.5 ML IV SCH (11:00)
--- NOTE | 2024-12-17 11:12 | CONS ---
[facility] CONSULTATION NOTE Date Patient Seen: December 17, 2024 Time of Visit: 11:06 Supervising Physician: Dr. Haynes Reason for Consultation: Critical care Primary Care Physician: Eleuterio Vines Outpatient Specialists: [ ] Inpatient Consults: [ ] PROBLEM LIST: Hemorrhagic shock Severe metabolic acidosis POA. Hyperkalemia POA. TESS suspected from ATN POA. Rhabdomyolysis POA. Acute coagulopathy. GI bleed. Shock liver. Diabetes mellitus type 2 controlled hemoglobin A1c 6.6. Lactic acidosis. Hypermagnesemia. Hypertension. Hyperlipidemia. History of CAD with remote CABG HPI: This is a 79 years old female with a past medical history of type 2 diabetes mellitus, hypertension, hyperlipidemia, CAD with history of CABG, osteoarthritis, GERD, who presented to emergency department for evaluation of epigastric pain. Per chart documentation, back in October 2024, she underwent laparoscopic cholecystectomy at [facility]. Since the surgery, she continued to have some epigastric pain associated with the nausea and vomiting leading to multiple ER visits, last one was 11/07/2024. On this occasion, the patient returned with the same complaint. Upon initial workup in the emergency department, WBC 12.9 hemoglobin 11 hematocrit 39.9 platelets 240. Sodium 147 potassium 4.7 CO2 seven BUN 35 creatinine 2.6 GFR 18 bilirubin 1.3 AST 2.3 ALT 57 troponin 54 repeated 164 albumin 2.[address] abdomen/pelvis showed gastric distention no bowel dilation. Possible enterocolitis. Enlarged uterus suggesting fibroids uterus. Chest x-ray showed pulmonary vascular congestion and post sternotomy changes. The patient was subsequently admitted for further inpatient evaluation and management of her condition. Overnight, she was found with hypotension, hypoglycemia and agonal type breathing. A rapid response was initially called, which later converted to code blue events due to rapid decline in condition. The patient was subsequently intubated by ER MD and later transferred here to the ICU for further critical care management. Repeat labs this a.m. showed a WBC of 12.4, H&H 8.2/31.2 and a platelet count of 179. Chemistry panel was notable for a potassium of 5.2, CO2 of seven, BUN 34, creatinine of 2.9, GFR of 16, blood glucose 173, hemoglobin A1c 6.6. Lactic acid of 20.9, magnesium of 4.40. Total bili of 1.4, direct bili 0.6, AST 717, ALT 146, alk-phos of 157, total CK of 609, BNP 2950, total protein of 4.7, albumin of 2.1. PT 85.4 /INR >8.00. Patient was subsequently transferred to the ICU for further inpatient evaluation and management of her condition. PAST MEDICAL HX: see above PAST SURGICAL HX: noncontributory SOCIAL HISTORY: No tobacco, ETOH, or illicit drug use Coded Allergies: No Known Drug Allergies (Unverified Allergy, Unknown, 06/06/24) REVIEW OF SYSTEMS: Unable to carry out evaluation of the patient is sedated and mechanically vented. PHYSICAL EXAM: GENERAL: Sedated and mechanically vented. HEENT: EOMI, Sclera non icteric, moist mucosa NECK: Supple, no JVD, trachea midline LUNGS: Clear breath sounds bilaterally. No wheezes HEART: Regular rate and rhythm. Normal S1 and S2, without murmurs ABD: Abdomen soft, nontender. Bowel sounds present EXT: No clubbing cyanosis or edema NEURO: Deferred Vital Signs (last 8hr) Date Time Temp Pulse Resp B/P (MAP) Pulse Ox O2 Delivery O2 Flow Rate FiO2 12/17/24 09:31 113 50 12/17/24 08:00 100 Ventilator+ 100 12/17/24 06:58 94 15 111/58 (75) 100 12/17/24 06:53 87 16 128/59 (82) 100 12/17/24 06:48 91 17 116/53 (74) 100 12/17/24 06:43 89 16 114/61 (78) 100 12/17/24 06:38 84 16 115/51 (72) 100 12/17/24 06:37 87 50 12/17/24 06:33 87 16 119/60 (79) 99 12/17/24 06:28 95 16 127/51 (76) 100 12/17/24 06:23 95 16 124/56 (78) 100 12/17/24 06:18 91 14 122/59 (80) 100 12/17/24 06:13 89 16 105/71 (82) 100 12/17/24 06:08 88 16 111/61 (78) 100 12/17/24 06:03 90 15 108/62 (77) 99 12/17/24 05:58 88 15 108/59 (75) 100 12/17/24 05:53 83 15 103/50 (67) 100 12/17/24 05:48 89 15 110/76 (87) 100 12/17/24 05:43 83 15 109/61 (77) 100 12/17/24 05:38 91 15 116/48 (70) 100 12/17/24 05:33 83 17 103/55 (71) 100 12/17/24 05:28 91 14 101/49 (66) 100 12/17/24 05:23 88 16 99/44 (62) 100 12/17/24 05:18 87 15 110/43 (65) 100 12/17/24 05:13 81 16 101/46 (64) 100 12/17/24 05:09 91 15 127/46 (73) 100 12/17/24 05:03 86 14 97/39 (58) 100 12/17/24 05:00 100 Ventilator+ 100 12/17/24 04:58 75 12 84/36 (52) 100 12/17/24 04:53 82 16 102/54 (70) 100 12/17/24 04:43 93.0 72 16 90/39 (56) 99 12/17/24 04:42 78 13 125/47 (73) 100 12/17/24 04:40 81 50 12/17/24 03:45 75 17 77/56 90 Nasal Cannula 2.0 12/17/24 03:44 44 12 91/44 99 Nasal Cannula 3.0 LABS: Hematology Labs: Test 12/17/24 08:54 12/17/24 05:00 12/16/24 11:16 Range/Units Hemoglobin 9.4 L 12.0-16.0 g/dL Hematocrit 33.8 L 36-48 % White Blood Count 12.4 H 4.8-10.8 K/uL Red Blood Count 2.92 #L 4.00-5.50 MIL/uL Mean Corpuscular Volume 106.8 H 79-99 fL Mean Corpuscular Hemoglobin 28.1 27.0-33.0 pg Mean Corpuscular Hemoglobin Concent 26.3 L 32.0-36.0 g/dL Red Cell Distribution Width 19.6 H 11.0-15.5 % Platelet Count 179 # 130-400 K/uL Mean Platelet Volume 12.1 H 7.5-10.5 fL Immature Granulocyte % (Auto) 1.0 0-1 % Neutrophils (%) (Auto) 79.4 H 40.0-77.0 % Lymphocytes (%) (Auto) 17.5 L 21.0-51.0 % Monocytes (%) (Auto) 1.9 L 3.0-13.0 % Eosinophils (%) (Auto) 0.0 0.0-8.0 % Basophils (%) (Auto) 0.2 0.0-5.0 % Neutrophils # (Auto) 9.9 H 1.8-7.7 K/uL Lymphocytes # (Auto) 2.2 1.0-4.8 K/uL Monocytes # (Auto) 0.2 0.1-1.0 K/uL Eosinophils # (Auto) 0.00 0.00-0.70 K/uL Basophils # (Auto) 0.02 0.00-0.20 K/uL Absolute Immature Granulocyte (auto 0.12 0-1 K/uL Nucleated Red Blood Cells 1.9 H 0.0-0.19 % Red Blood Cell Morphology See comments Chemistry Labs: Test 12/17/24 08:54 12/17/24 08:09 12/17/24 05:00 12/16/24 12:31 Range/Units Lactic Acid Level 22.8 H 0.8-2.5 mmol/L Whole Blood Glucose 149 H 70-110 MG/DL Sodium Level 144 136-145 mmol/L Potassium Level 5.2 H 3.5-5.1 mmol/L Chloride Level 107 101-111 mmol/L Carbon Dioxide Level 7 *L 21-32 mmol/L Blood Urea Nitrogen 34 H 7-18 mg/dL Creatinine 2.9 H 0.5-1.0 mg/dL Glomerular Filtration Rate Calc 16 >90 mL/min Random Glucose 173 #H 70-105 mg/dL Hemoglobin A1c 6.6 H 4.0-6.0 % Estimated Average Glucose (eAG) 143 H 70-126 mg/dL Total Calcium 8.9 8.5-10.1 mg/dL Magnesium Level 4.40 *H 1.80-2.40 mg/dL Total Bilirubin 1.4 H 0.2-1.0 mg/dL Direct Bilirubin 0.6 #H 0.0-0.3 mg/dL Aspartate Amino Transf (AST/SGOT) 717 *H 10-37 U/L Alanine Aminotransferase (ALT/SGPT) 146 #H 12-78 U/L Alkaline Phosphatase 157 #H 50-136 U/L Total Creatine Kinase 609 #*H 21-232 U/L B-Type Natriuretic Peptide 2950 H 0-100 pg/mL Total Protein 4.7 #L 6.0-8.3 g/dL Albumin 2.1 #L 3.5-5.0 g/dL Lipase 82 H 16-77 U/L Procalcitonin 0.34 0.05-0.5 ng/mL Troponin I High Sensitivity 64 *H 4-50 ng/L Coagulation Labs: Test 12/17/24 05:00 Range/Units Prothrombin Time 85.4 *H 9.6-11.6 SEC Prothromb Time International Ratio > 8.00 *H 0.85-1.15 DIAGNOSTICS / RADIOLOGY RESULTS: [ ] PLAN Currently, the patient remains sedated on fentanyl, intubated and mechanically vented ACVC rate of 18, FiO2 50% tidal volume of 400 and a PEEP of 5. FFP transfusion is on board, vitamin K 10 mg IV was ordered. The patient continues on a dopamine drip. I am going to start the patient on Protonix and Sandostatin drip. We will continue to monitor the H&H trend q.4 hours and we will transfuse as necessary. Gastroenterology is on board and we will await their input and plan to intervene We will also follow the chemistry panel q.4 to follow correction. Patient will remain on a bicarb drip as ordered. Empiric antibiotic therapy was initiated currently receiving cefepime and vanco. We will monitor the patient's progress and response to management. We will continue to provide general supportive care, GI and DVT prophylaxis. Further orders per attending MD and hospital course. NEURO: Minimize central acting medications as possible. Fall Precautions. Well lighted room through the day and minimize interruptions through the night to prevent acute delirium. PULMONARY: Supplemental 02 as needed Titrate Fio2 to keep Spo2 > or = 90% DuoNebs and CPT as needed IS hourly while awake for pulmonary hygiene Out of bed to chair as tolerated VAP Bundle Vent/BIPAP Settings: [ACVC rate of 18, FiO2 50% tidal volume of 400 and a PEEP of 5. ] CARDIOVASCULAR: Follow hemodynamics. Titrate vasopressor to keep MAP >65 or systolic blood pressure >95mmHg DIPS: Fentanyl Bicarb Dopamine LINES: IO Peripherals GI & NUTRITION: Continue nutritional support Aspirations precautions Prokinetic agents and laxatives as needed KIDNEYS & ELECTROLYTES: Strict monitoring of intake and output Daily weights Avoid nephrotoxic agents Monitor electrolytes and replace as needed Goal urine output of 30mL/hr or 0.5mL/kg/hr Urine output: [ ] Fluid Balance: [ ] ENDOCRINE: Maintain blood glucose between 100-180 at all times. Insulin sliding scale for blood glucose management INFECTIOUS DISEASE: Trend temperature. Duvall-culture if febrile. Micro: [ ] Antibiotics: [ cefepime and vanco. ] HEMATOLOGY & COAGULATION: Monitor H&H. Keep Hgb > 7 Transfuse 1 unit of PRBC for Hgb < 7 Transfuse 1 pack of platelets of platelets < 20, 000 Watch for any signs and symptoms of bleeding SKIN: Pressure ulcer prevention per facility protocol Rehab: PT/OT Prophylaxis: GI: [ Protonix ] DVT: [SCD ] Code Status: Full Resuscitation Disposition: [ ICU ] Other: I personally spent 75 minutes of critical care time in treatment of this patient. This includes patient management, time at bedside, time reviewing tests, labs, appropriate images and studies, documentation, and patient care coordination. This time excludes separately billable procedures. Case was discussed and seen with my supervising physician. The above plan was formulated and agreed upon. SAYRA GALVEZ NP December 17, 2024 11:12
[2024-12-17] MEDS ORDERED: COMPOUND IV REFRIGERATED 1 EACH IVSOLN MISC PRN (11:30)
--- NOTE | 2024-12-17 12:00 | NUR ---
Conferred with nurse Last. Patient medically unstable, PT mihaela on hold today. Addendum: 12/17/24 at 1748 by MONIKA TY PT Amended: Links added.
[2024-12-17 12:15] LABS: HEMATOCRIT 29.9 % (36-48)
[2024-12-17] MEDS: VANCOMYCIN 1.5 GM/250 ML BAG 250 ML IV ONE (12:16)
[2024-12-17 12:23] LABS: ABG BASE EXCESS -20.9 mmol/L (-2.0-3.0); ABG HCO3 7.9 mmol/L (21.0-28.0); ABG OXYGEN SATURATION 94.9 % (94.0-98.0); ABG PCO2 28 mmHg (32-45); DEVICE COMMENT LR RN LEO; PO2, ARTERIAL BG 100.1 mmHg (83.0-108.0)
[2024-12-17 12:26] LABS: CREATININE 2.7 mg/dL (0.5-1.0); POTASSIUM 4.8 mmol/L (3.5-5.1)
[2024-12-17 12:27] LABS: PARTIAL THROMBOPLASTIN TIME 76.3 SEC (26.3-35.5)
[2024-12-17 12:38] LABS: PROTHROMBIN TIME 38.4 SEC (9.6-11.6)
[2024-12-17 12:39] LABS: INR 4.17 (0.85-1.15)
[2024-12-17] MEDS: phenylEPHRINE HCL 100 MG in 0.9% NACL 250ML 250 ML IV SCH ×2 (12:51→21:48)
[2024-12-17 13:06] LABS: ALBUMIN 2.4 g/dL (3.5-5.0); BILIRUBIN,DIRECT 1.1 mg/dL (0.0-0.3); BILIRUBIN,TOTAL 1.7 mg/dL (0.2-1.0); TOTAL PROTEIN, SERUM 5.1 g/dL (6.0-8.3)
[2024-12-17 13:58] LABS: ABG PH 7.073 (7.350-7.450)
[2024-12-17] MEDS ORDERED: ALBUMIN (HUMAN) 5% 250 ML IV SCH (14:30)
[2024-12-17] MEDS: NOREPINEPHRIN 4MG/NS 250ML 250 ML IV SCH (14:45)
[2024-12-17] MEDS ORDERED: OCTREOTIDE 1,250 MCG /NS 250ML (DRIP) IV SCH (15:30)
[2024-12-17 16:14] LABS: HEMATOCRIT 28.2 % (36-48)
[2024-12-17 16:25] LABS: POTASSIUM 5.3 mmol/L (3.5-5.1)
[2024-12-17 16:28] LABS: PARTIAL THROMBOPLASTIN TIME 74.2 SEC (26.3-35.5)
[2024-12-17 16:36] LABS: PROTHROMBIN TIME 48.2 SEC (9.6-11.6)
[2024-12-17 16:37] LABS: INR 5.37 (0.85-1.15)
[2024-12-17 16:40] LABS: ABG BASE EXCESS -14.8 mmol/L (-2.0-3.0); ABG HCO3 11.5 mmol/L (21.0-28.0); ABG PCO2 28 mmHg (32-45); ABG PH 7.225 (7.350-7.450); CARBON MONOXIDE 0.3 % (0.5-1.5); DEVICE COMMENT RN LEO; PO2, ARTERIAL BG 78.7 mmHg (83.0-108.0); VENT MODE, BG AC (ROOM AIR)
[2024-12-17] MEDS: metoPROLOL tartRATE 1 MG/ML 5ML VIAL IV PRN (18:21)
[2024-12-17] MEDS: VASOpressin 20 UNITS/ML 1ML Vi 20 UNITS in 0.9%NACL 100ML 100 ML IV SCH (18:23)
[2024-12-17 19:17] LABS: ABG BASE EXCESS -3.9 mmol/L (-2.0-3.0); ABG OXYGEN SATURATION 98.8 % (94.0-98.0); ABG PCO2 44 mmHg (32-45); ABG PH 7.312 (7.350-7.450); CARBON MONOXIDE 0.4 % (0.5-1.5); HHb 1.2; PO2, ARTERIAL BG 203.3 mmHg (83.0-108.0); VENT MODE, BG AC VC (ROOM AIR)
[2024-12-17] MEDS: PHYTONADIONE 10 MG in 0.9%NACL 50ML 50 ML IVPB ONE (19:20)
[2024-12-17 19:26] LABS: MEAN CORPUSCULAR HEMOGLOBIN 27.6 pg (27.0-33.0); MEAN CORPUSCULAR HGB CONC 29.4 g/dL (32.0-36.0); MEAN CORPUSCULAR VOLUME 93.8 fL (79-99); NUCLEATED RED BLOOD CELLS 29.8 % (0.0-0.19); PLATELET COUNT (AUTO) 110 K/uL (130-400); RED CELL DISTRIBUTION WIDTH 19.6 % (11.0-15.5); WHITE BLOOD COUNT (AUTO) 8.3 K/uL (4.8-10.8)
[2024-12-17 19:34] LABS: HEMATOCRIT 19.7 % (36-48)
--- NOTE | 2024-12-17 19:36 | HMCIMG ---
CHEST 1VW CLINICAL HISTORY: POST CODE BLUE COMPARISON: Previously the same day TECHNIQUE: Single view of the chest was obtained. FINDINGS: There is mild underlying congestive heart failure or pulmonary edema. The endotracheal tube tip is 2.8 cm above brown. The nasogastric tube tip terminates in the right upper quadrant likely in the gastric lumen or proximal duodenum. The cardiac size enlarged and stable. Again demonstrated changes of prior median sternotomy. IMPRESSION: The endotracheal tube tip is 2.8 cm above the brown. Mild congestive heart failure
[2024-12-17 19:39] LABS: PARTIAL THROMBOPLASTIN TIME 59.8 SEC (26.3-35.5)
[2024-12-17 19:50] LABS: INR > 7.00 (0.85-1.15); PROTHROMBIN TIME 68.6 SEC (9.6-11.6)
[2024-12-17 19:59] LABS: ALBUMIN 1.7 g/dL (3.5-5.0); BILIRUBIN,TOTAL 1.8 mg/dL (0.2-1.0); CREATININE 2.7 mg/dL (0.5-1.0); MAGNESIUM 3.6 mg/dL (1.80-2.40); POTASSIUM 5.8 mmol/L (3.5-5.1); TOTAL PROTEIN, SERUM 3.4 g/dL (6.0-8.3)
[2024-12-17] MEDS ORDERED: phenylEPHRINE HCL 10 MG in 0.9% NACL 250ML 250 ML IV SCH (20:00)
[2024-12-17 20:13] LABS: BAND NEUTROPHILS % (MANUAL) 22 % (0-2); EOSINOPHILS % (MANUAL) 1 % (1-6); LYMPHOCYTES % (MANUAL) 21 % (22-44); MONOCYTES % (MANUAL) 3 % (2-9); REACTIVE LYMPHOCYTES 3 % (0-0); SEGMENTED NEUTROPHILS % 50 % (40-70); TOTAL CELLS COUNTED 100
[2024-12-17 20:14] LABS: MAN.DIFF COMMENT-IMPRESSION MANUAL DIFFERENTIAL
[2024-12-17 20:15] LABS: PLATELET MORPHOLOGY COMMENT SLIGHTLY DECREASED
--- NOTE | 2024-12-17 20:26 | HMCIMG ---
CHEST 1VW CLINICAL HISTORY: PICC PLACEMENT COMPARISON: 12/17/2024 TECHNIQUE: Single view of the chest was obtained. FINDINGS: There is been interval placement of a PICC line with tip overlying the proximal superior vena cava. The remainder of the examination is stable. IMPRESSION: PICC tip overlying the proximal superior vena cava.
[2024-12-17] MEDS: SODIUM BICARB 50MEQ 50ML VIAL 50 ML ONE (20:40)
[2024-12-17] MEDS: atorVAStatin 40 MG TABLET PO SCH (21:00)
[2024-12-18] VITALS (42 sets, daily range): BP systolic 37–150; BP diastolic 18–96; PULSE 57–178; RESP 12–120; TEMP 96.8–97.1; O2SAT 93–99
[2024-12-18] MEDS ORDERED: EPINEPHrine PF 1MG (1:1,000) 10 MG in 0.9% NACL 250ML 250 ML IV SCH
[2024-12-18 00:05] LABS: HEMATOCRIT 25.9 % (36-48)
[2024-12-18 00:16] LABS: PROTHROMBIN TIME 34.9 SEC (9.6-11.6)
[2024-12-18 00:19] LABS: CREATININE 2.8 mg/dL (0.5-1.0); POTASSIUM 5.4 mmol/L (3.5-5.1)
[2024-12-18 00:32] LABS: PARTIAL THROMBOPLASTIN TIME 86.9 SEC (26.3-35.5)
[2024-12-18 00:34] LABS: INR 3.75 (0.85-1.15)
[2024-12-18] MEDS: NOREPINEPHRINE 16MG/NS 250ML PREMIX IV SCH (01:47)
[2024-12-18] MEDS: EPINEPHrine PF 1MG (1:1,000) 10 MG in 0.9% NACL 250ML 250 ML IV SCH (01:49)
[2024-12-18 03:30] LABS: CREATININE 2.9 mg/dL (0.5-1.0); POTASSIUM 5.3 mmol/L (3.5-5.1)
[2024-12-18 03:31] LABS: HEMATOCRIT 23.9 % (36-48)
[2024-12-18 04:28] LABS: INR 5.37 (0.85-1.15); PARTIAL THROMBOPLASTIN TIME 89.7 SEC (26.3-35.5); PROTHROMBIN TIME 48.2 SEC (9.6-11.6)
[2024-12-18 07:37] LABS: ALBUMIN 1.9 g/dL (3.5-5.0); BILIRUBIN,DIRECT 1.3 mg/dL (0.0-0.3); BILIRUBIN,TOTAL 2.3 mg/dL (0.2-1.0); TOTAL PROTEIN, SERUM 3.9 g/dL (6.0-8.3)
[2024-12-18 07:39] LABS: HEMATOCRIT 27.1 % (36-48)
[2024-12-18 07:51] LABS: CREATININE 2.9 mg/dL (0.5-1.0)
[2024-12-18 07:56] LABS: ABG BASE EXCESS -19.7 mmol/L (-2.0-3.0); ABG OXYGEN SATURATION 97.6 % (94.0-98.0); ABG PCO2 41 mmHg (32-45); CARBON MONOXIDE 0.3 % (0.5-1.5); DEVICE COMMENT LR; HHb 2.4; PO2, ARTERIAL BG 144.5 mmHg (83.0-108.0); VENT MODE, BG ABAG (ROOM AIR)
[2024-12-18 08:41] LABS: PARTIAL THROMBOPLASTIN TIME 113.5 SEC (26.3-35.5)
[2024-12-18 08:52] LABS: INR 5.52 (0.85-1.15); PROTHROMBIN TIME 52.7 SEC (9.6-11.6)
[2024-12-18 08:58] LABS: ABG PH 7.008 (7.350-7.450)
--- NOTE | 2024-12-18 09:00 | NUR ---
AT 0900 SPOKE WITH RONY NICOLE AT [facility] FOR INITIAL CALL OF VENTED PATIENT, REFERENCE NUMBER [phone]
--- NOTE | 2024-12-18 09:20 | NUR ---
AT 0920, RONY NICOLE FROM [facility] CALLED BACK IN REGARDS TO THE PATIENT NOT BEING A CANDIDATE FOR TISSUE OR ORGAN DONATION, SHE STATED TO CALL BACK WHENEVER THERE WAS CARDIAC
[2024-12-18] MEDS: DOPamine HCL 400 MG/D5%-WATER 250 ML IV ONE (09:43)
--- NOTE | 2024-12-18 10:20 | NUR ---
FAMILY WISHED TO WITHDRAW CARE OF PATIENT FORM OF CONSENT FOR WITHDRAW OF CARE WAS SIGNED BY THE SON, SHEA BENNETT
--- NOTE | 2024-12-18 10:32 | PN ---
[facility] PROGRESS NOTE Date Patient Seen: Dec 18, 2024 Time of Visit: 10:32 Supervising Physician: Dr. Núñez Primary Care Physician: Eleuterio Vines Outpatient Specialists: [ ] Inpatient Consults: [ ] PROBLEM LIST: Hemorrhagic shock Severe metabolic acidosis POA. Hyperkalemia POA. TESS suspected from ATN POA. Rhabdomyolysis POA. Acute coagulopathy. GI bleed. Shock liver. Diabetes mellitus type 2 controlled hemoglobin A1c 6.6. Lactic acidosis. Hypermagnesemia. Hypertension. Hyperlipidemia. History of CAD with remote CABG INTERVAL HISTORY: 12/18/2024: At the time of my evaluation, the patient remained intubated 100% FiO2. She was being coded by the nursing staff due to PEA. The code blue event initiated at 7:41 a.m. ACLS guidelines were followed and ROS was achieved at 7:5 0 a.m. chemistry panel obtained showed a sodium of 149, potassium of 6.0, chloride of 107, carbon dioxide of 11, BUN of 32, creatinine of 2.9 and a GFR of 16. The patient remained on a Levo, Tmi and Vaso drip. She also remain on bicarb, Protonix and octreotide drip. She was also completing Amicar. REVIEW OF SYSTEMS: Unable to carry out evaluation of the patient is sedated and mechanically vented. PHYSICAL EXAM: GENERAL: Sedated and mechanically vented. HEENT: EOMI, Sclera non icteric, moist mucosa NECK: Supple, no JVD, trachea midline LUNGS: Clear breath sounds bilaterally. No wheezes HEART: Regular rate and rhythm. Normal S1 and S2, without murmurs ABD: Abdomen soft, nontender. Bowel sounds present EXT: No clubbing cyanosis or edema NEURO: Deferred Vital Signs (last 8hr) Date Time Temp Pulse Resp B/P (MAP) Pulse Ox O2 Delivery O2 Flow Rate FiO2 12/18/24 09:43 123/64 12/18/24 09:24 87 100 12/18/24 09:15 107 20 114/62 97 Ventilator 100 12/18/24 09:00 96 20 123/71 96 Ventilator 100 12/18/24 08:45 81 20 116/96 99 Ventilator 100 12/18/24 08:30 81 21 112/65 98 Ventilator 100 12/18/24 08:15 95 20 115/74 99 Ventilator 100 12/18/24 08:00 93 20 101/65 100 Ventilator 100 12/18/24 07:54 100 12/18/24 07:45 108 20 108/62 100 Ventilator 100 12/18/24 07:30 123 22 150/69 100 Ventilator 100 12/18/24 07:15 178 120 89/44 90 Ventilator 100 12/18/24 07:00 57 12 37/18 89 Ventilator 100 12/18/24 06:45 59 12 68/36 (47) 90 12/18/24 06:30 65 12 65/40 (48) 93 12/18/24 06:17 75/49 12/18/24 06:15 84 12 85/38 (54) 95 12/18/24 06:15 84 90 12/18/24 06:00 88 12 93 12/18/24 05:45 93 12 94 12/18/24 05:30 88 12 94/42 (59) 95 12/18/24 05:23 108/50 12/18/24 05:15 95 12 81/50 (60) 95 12/18/24 05:00 95 12 108/50 (69) 94 12/18/24 04:45 96 12 95 12/18/24 04:30 98 12 106/42 (63) 96 12/18/24 04:15 105 12 97/48 (64) 97 12/18/24 04:00 96 Ventilator+ 50 12/18/24 04:00 97.2 107 12 114/45 (68) 96 12/18/24 03:45 104 12 90/52 (65) 95 12/18/24 03:45 104/57 12/18/24 03:35 99 90 12/18/24 03:30 112 12 110/51 (70) 84 12/18/24 03:15 106 12 112/48 (69) 96 12/18/24 03:00 120 12 101/66 (78) 97 12/18/24 02:45 124 12 112/59 (76) 97 LABS: Hematology Labs: Test 12/18/24 07:18 12/17/24 19:20 12/17/24 05:00 Range/Units Hemoglobin 7.6 L 12.0-16.0 g/dL Hematocrit 27.1 L 36-48 % White Blood Count 8.3 # 4.8-10.8 K/uL Red Blood Count 2.10 #L 4.00-5.50 MIL/uL Mean Corpuscular Volume 93.8 79-99 fL Mean Corpuscular Hemoglobin 27.6 27.0-33.0 pg Mean Corpuscular Hemoglobin Concent 29.4 L 32.0-36.0 g/dL Red Cell Distribution Width 19.6 H 11.0-15.5 % Platelet Count 110 #L 130-400 K/uL Mean Platelet Volume 11.7 H 7.5-10.5 fL Segmented Neutrophils % 50 40-70 % Band Neutrophils % 22 H 0-2 % Lymphocytes % (Manual) 21 L 22-44 % Monocytes % (Manual) 3 2-9 % Eosinophils % (Manual) 1 1-6 % Nucleated Red Blood Cells 29.8 H 0.0-0.19 % Differential Comment MANUAL DIFFERENTIAL Reactive Lymphocytes 3 H 0-0 % White Cell Morphology Comment Platelet Morphology Comment SLIGHTLY DECREASED Red Blood Cell Morphology See comments Immature Granulocyte % (Auto) 1.0 0-1 % Neutrophils (%) (Auto) 79.4 H 40.0-77.0 % Lymphocytes (%) (Auto) 17.5 L 21.0-51.0 % Monocytes (%) (Auto) 1.9 L 3.0-13.0 % Eosinophils (%) (Auto) 0.0 0.0-8.0 % Basophils (%) (Auto) 0.2 0.0-5.0 % Neutrophils # (Auto) 9.9 H 1.8-7.7 K/uL Lymphocytes # (Auto) 2.2 1.0-4.8 K/uL Monocytes # (Auto) 0.2 0.1-1.0 K/uL Eosinophils # (Auto) 0.00 0.00-0.70 K/uL Basophils # (Auto) 0.02 0.00-0.20 K/uL Absolute Immature Granulocyte (auto 0.12 0-1 K/uL Chemistry Labs: Test 12/18/24 07:18 12/18/24 03:07 12/18/24 02:25 12/18/24 00:43 Range/Units Sodium Level 149 H 136-145 mmol/L Potassium Level 6.0 *H 3.5-5.1 mmol/L Chloride Level 107 101-111 mmol/L Carbon Dioxide Level 11 L 21-32 mmol/L Blood Urea Nitrogen 32 H 7-18 mg/dL Creatinine 2.9 H 0.5-1.0 mg/dL Glomerular Filtration Rate Calc 16 >90 mL/min Random Glucose 137 H 70-105 mg/dL Total Calcium 7.7 L 8.5-10.1 mg/dL Total Bilirubin 2.3 #H 0.2-1.0 mg/dL Direct Bilirubin 1.3 H 0.0-0.3 mg/dL Aspartate Amino Transf (AST/SGOT) 07925 *H 10-37 U/L Alanine Aminotransferase (ALT/SGPT) 3029 #*H 12-78 U/L Alkaline Phosphatase 148 #H 50-136 U/L Total Protein 3.9 L 6.0-8.3 g/dL Albumin 1.9 L 3.5-5.0 g/dL Whole Blood Glucose 114 #H 70-110 MG/DL Bedside Glucose Comment Stat Lab Glu Request Test 12/17/24 19:20 12/17/24 16:03 12/17/24 05:00 12/16/24 12:31 Range/Units Magnesium Level 3.60 H 1.80-2.40 mg/dL Lactic Acid Level 21.4 H 0.8-2.5 mmol/L Hemoglobin A1c 6.6 H 4.0-6.0 % Estimated Average Glucose (eAG) 143 H 70-126 mg/dL Total Creatine Kinase 609 #*H 21-232 U/L B-Type Natriuretic Peptide 2950 H 0-100 pg/mL Lipase 82 H 16-77 U/L Procalcitonin 0.34 0.05-0.5 ng/mL Troponin I High Sensitivity 64 *H 4-50 ng/L Coagulation Labs: Test 12/18/24 07:18 12/17/24 16:03 Range/Units Prothrombin Time 52.7 *H 9.6-11.6 SEC Prothromb Time International Ratio 5.52 *H 0.85-1.15 Activated Partial Thromboplast Time 113.5 #*H 26.3-35.5 SEC Fibrinogen 98 *L 180-350 mg/dL DIAGNOSTICS / RADIOLOGY RESULTS: [ ] PLAN Currently, the patient remains sedated on fentanyl, intubated and mechanically vented ACVC rate of 18, FiO2 50% tidal volume of 400 and a PEEP of 5. FFP transfusion is on board, vitamin K 10 mg IV was ordered. The patient continues on a dopamine drip. I am going to start the patient on Protonix and Sandostatin drip. We will continue to monitor the H&H trend q.4 hours and we will transfuse as necessary. Gastroenterology is on board and we will await their input and plan to intervene We will also follow the chemistry panel q.4 to follow correction. Patient will remain on a bicarb drip as ordered. Empiric antibiotic therapy was initiated currently receiving cefepime and vanco. We will monitor the patient's progress and response to management. We will continue to provide general supportive care, GI and DVT prophylaxis. Further orders per attending MD and hospital course. 12/18/2024: Post resuscitation measures, I proceeded to having length discussion with the son who was present at the bedside and is the decision maker. I made him aware of the prior PEA event. Also made him aware of her coagulopathy with a PT of 52.7, INR 5.52 and a PTT of 113.5. Also discussed her electrolyte imbalance, acute kidney injury and liver failure which puts the patient in a critical state with a grim prognosis. After discussing her entire case, the son did request for DNR and was awaiting his who is soon to arrive and we will be possibly withdrawing care. We will continue current management for now and await further input. NEURO: Minimize central acting medications as possible. Fall Precautions. Well lighted room through the day and minimize interruptions through the night to prevent acute delirium. PULMONARY: Supplemental 02 as needed Titrate Fio2 to keep Spo2 > or = 90% DuoNebs and CPT as needed IS hourly while awake for pulmonary hygiene Out of bed to chair as tolerated VAP Bundle Vent/BIPAP Settings: [ACVC rate of 18, FiO2 50% tidal volume of 400 and a PEEP of 5. ] CARDIOVASCULAR: Follow hemodynamics. Titrate vasopressor to keep MAP >65 or systolic blood pressure >95mmHg DIPS: Fentanyl Vaso Tim Bicarb Dopamine LINES: IO Peripherals GI & NUTRITION: Continue nutritional support Aspirations precautions Prokinetic agents and laxatives as needed KIDNEYS & ELECTROLYTES: Strict monitoring of intake and output Daily weights Avoid nephrotoxic agents Monitor electrolytes and replace as needed Goal urine output of 30mL/hr or 0.5mL/kg/hr Urine output: [ ] Fluid Balance: [ ] ENDOCRINE: Maintain blood glucose between 100-180 at all times. Insulin sliding scale for blood glucose management INFECTIOUS DISEASE: Trend temperature. Duvall-culture if febrile. Micro: [ ] Antibiotics: [ cefepime, Flagyl and vanco. ] HEMATOLOGY & COAGULATION: Monitor H&H. Keep Hgb > 7 Transfuse 1 unit of PRBC for Hgb < 7 Transfuse 1 pack of platelets of platelets < 20, 000 Watch for any signs and symptoms of bleeding SKIN: Pressure ulcer prevention per facility protocol Rehab: PT/OT Prophylaxis: GI: [ Protonix ] DVT: [SCD ] Code Status: Full Resuscitation Disposition: [ ICU ] Other: I personally spent 92 minutes of critical care time in treatment of this patient. This includes patient management, time at bedside, time reviewing tests, labs, appropriate images and studies, documentation, and patient care coordination. This time excludes separately billable procedures. Case was discussed and seen with my supervising physician. The above plan was formulated and agreed upon. SAYRA GALVEZ NP Dec 18, 2024 10:32
--- NOTE | 2024-12-18 10:38 | NUR ---
Dr. Helms called to pronounce patient time of .
[2024-12-18] MEDS ORDERED: morPHINE 2 MG SYG IVP PRN (11:00)
[2024-12-18] MEDS ORDERED: diazePAM 5 MG/ML 2 ML SYG IV PRN (11:00)
--- NOTE | 2024-12-18 11:00 | NUR ---
AT 1100 CALLED BACK [facility] AND SPOKE TO RONY NICOLE AND INFORMED RONY NICOLE THE TIME OF OF THE PATIENT IN RM. 218, WHICH WAS 1041, PRONOUNCED BY DR. CORONA PACHECO.
[2024-12-19] MEDS ORDERED: VANCOMYCIN 750MG VIAL IVPB SCH (10:30)
== END 2024-12-18 10:41 | DRG 682 ==
LOC: EDH 10:44 → EDHIP 14:40 → 3BH 17:40 → 2CH 12-17 04:42
PROVIDERS: ADMIT Internal Medicine; ATTEND Internal Medicine
PROC: 30233K1 Transfusion of Nonautologous Frozen Plasma into Peripheral Vein, Percutaneous Approach (ICD-10-PCS; principal; 2024-12-17)
PROC: 0BH17EZ Insertion of Endotracheal Airway into Trachea, Via Natural or Artificial Opening (ICD-10-PCS; 2024-12-17)
PROC: 5A1945Z Respiratory Ventilation, 24-96 Consecutive Hours (ICD-10-PCS; 2024-12-17)
PROC: 5A12012 Performance of Cardiac Output, Single, Manual (ICD-10-PCS; 2024-12-17)
PROC: 02HV33Z Insertion of Infusion Device into Superior Vena Cava, Percutaneous Approach (ICD-10-PCS; 2024-12-17)
PROC: 30233N1 Transfusion of Nonautologous Red Blood Cells into Peripheral Vein, Percutaneous Approach (ICD-10-PCS; 2024-12-18)
DX: N17.9 Acute kidney failure, unspecified (principal); E43 Unspecified severe protein-calorie malnutrition; I50.31 Acute diastolic (congestive) heart failure; K72.00 Acute and subacute hepatic failure without coma; J96.01 Acute respiratory failure with hypoxia; D68.4 Acquired coagulation factor deficiency; E87.1 Hypo-osmolality and hyponatremia; M62.82 Rhabdomyolysis; E87.20 Acidosis, unspecified; K92.2 Gastrointestinal hemorrhage, unspecified; K52.9 Noninfective gastroenteritis and colitis, unspecified; E11.649 Type 2 diabetes mellitus with hypoglycemia without coma; D25.9 Leiomyoma of uterus, unspecified; D64.9 Anemia, unspecified; E78.00 Pure hypercholesterolemia, unspecified; E83.41 Hypermagnesemia; E86.0 Dehydration; K31.89 Other diseases of stomach and duodenum; E87.5 Hyperkalemia; I11.0 Hypertensive heart disease with heart failure; I25.10 Atherosclerotic heart disease of native coronary artery without angina pectoris; I48.91 Unspecified atrial fibrillation; K21.9 Gastro-esophageal reflux disease without esophagitis; R57.8 Other shock; Z90.49 Acquired absence of other specified parts of digestive tract; Z95.1 Presence of aortocoronary bypass graft; Z68.31 Body mass index [BMI] 31.0-31.9, adult
CPT/HCPCS: 31500; 36415; 36430; 36569; 36600; 71045; 74176; 76705; 80048; 80053; 80076; 80305; 81001; 82435; 82550; 82803; 82947; 82948; 83036; 83605; 83690; 83735; 83880; 84132; 84145; 84295; 84484; 85014; 85018; 85025; 85027; 85384; 85610; 85730; 86850; 86900; 86901; 86923; 86927; 87040; 87086; 87186; 92950; 93005; 94002; 94003; 96374; 96375; 96376; 99285; G0378; J0171; J0461; J0692; J0696; J1265; J1644; J2270; J2354; J2371; J2470; J3010; J3430; J3490; J7030; J7040; J7050; J7070; P9012; P9016; P9017; P9045; J3370; P9010